=== PATIENT | female | born 1955 | race Caucasian/White ===

== ENCOUNTER 2017-07-05 10:32 | Inpatient (IN) ==
[2017-07-05] MEDS ORDERED: ACETAMINOPHEN 325 MG TABLET PO PRN (10:54)
[2017-07-05] MEDS ORDERED: EPOETIN ALFA 2,000 UNIT/1 ML VIAL IV PRN (11:02)
[2017-07-05 12:40] LABS: Basophils # 0.1 10*3/uL (0.0-0.2); Eosinophils # 0.2 10*3/uL (0.0-0.87); Eosinophils % 3.8 % (0.00-10.9); Hematocrit 23.7 VOL% (35.7-47.0); Immature Granulocytes % 0.2 %; Immature Granulocytes Absolute 0.01 #; Lymphocytes # 1.4 10*3/uL (1.4-4.0); Lymphocytes % 24.5 % (21.3-54.2); Mean Corpuscular HGB Conc 33.8 GM/DL (32-36); Mean Corpuscular Hemoglobin 33 PG (27-34); Mean Corpuscular Volume 98.3 FL (87-102); Mean Platelet Volume 11.2 FL (9.6-12.0); Monocytes # 0.5 10*3/uL (0.11-0.8); Monocytes % 8.4 % (1.7-12.7); Neutrophils # 3.6 10*3/uL (1.4-7.4); Neutrophils % 62.1 % (38.7-73.9); Platelet Count 213 T/CUMM (130-400); Red Blood Count 2.41 MC/CUMM (3.8-5.5); Red Cell Distribution Width 11.6 % (9.3-17.3); White Blood Count 5.7 T/CUMM (4-12)
[2017-07-05 16:11] LABS: Hepatitis A Ab IgM Result Negative (Negative); Hepatitis B Core IgM Quant 0.16 Index; Hepatitis B Core IgM Result Negative (Negative); Hepatitis B Surface Ag Quant < 0.10 Index; Hepatitis B Surface Ag Result Negative (Negative); Hepatitis C Virus Ab Quant 0.05 Index; Hepatitis C Virus Ab Result Negative (Negative)
[2017-07-05] MEDS: DOCUSATE SODIUM 100 MG CAPSULE PO SCH (21:36)
[2017-07-05] MEDS: ATORVASTATIN 10 MG TABLET PO SCH (21:36)
[2017-07-06] MEDS: ONDANSETRON 4 MG/2 ML VIAL IV PRN ×2 (06:11→20:41)
[2017-07-06 06:38] LABS: Basophils # 0.1 10*3/uL (0.0-0.2); Basophils % 1.2 % (0.0-0.8); Eosinophils # 0.2 10*3/uL (0.0-0.87); Eosinophils % 3.3 % (0.00-10.9); Hematocrit 24.5 VOL% (35.7-47.0); Hemoglobin 8.2 GM/DL (12.0-16.0); Immature Granulocytes % 0.1 %; Immature Granulocytes Absolute 0.01 #; Lymphocytes # 2.3 10*3/uL (1.4-4.0); Lymphocytes % 33.3 % (21.3-54.2); Mean Corpuscular HGB Conc 33.5 GM/DL (32-36); Mean Corpuscular Hemoglobin 33 PG (27-34); Mean Corpuscular Volume 97.6 FL (87-102); Mean Platelet Volume 11.3 FL (9.6-12.0); Monocytes # 0.6 10*3/uL (0.11-0.8); Monocytes % 8.7 % (1.7-12.7); Neutrophils # 3.7 10*3/uL (1.4-7.4); Neutrophils % 53.4 % (38.7-73.9); Platelet Count 244 T/CUMM (130-400); Red Blood Count 2.51 MC/CUMM (3.8-5.5); Red Cell Distribution Width 11.7 % (9.3-17.3); White Blood Count 6.9 T/CUMM (4-12)
[2017-07-06 07:07] LABS: Albumin 4.1 G/DL (3.4-5.0); Calcium 8.5 MG/DL (8.5-10.1); Osmolality,Calculated 299.4 MOS/KG (273-304); Potassium 4.9 MMOL/L (3.5-5.1)
[2017-07-06] MEDS ORDERED: ceFAZolin 1,000 MG in SYRINGE 1 EACH IV ONE (08:53)
[2017-07-06] MEDS: PANTOPRAZOLE 40 MG TABLET PO SCH (09:00)
[2017-07-06] MEDS: DOCUSATE SODIUM 100 MG CAPSULE PO SCH ×2 (09:00→20:41)
[2017-07-06] MEDS: ESCITALOPRAM 10 MG TABLET PO SCH (09:00)
[2017-07-06] MEDS: LOSARTAN 25 MG TABLET PO SCH (09:00)
[2017-07-06] MEDS ORDERED: LIDOCAINE 1%/EPI INJ 20 ML VIAL ONE (09:27)
[2017-07-06] MEDS ORDERED: BUPIVACAINE 0.25% 50 ML VIAL ONE (09:27)
[2017-07-06] MEDS ORDERED: HEPARIN 5,000 UNIT/1 ML VIAL ONE (09:27)
[2017-07-06] MEDS: SODIUM CHLORIDE 0.9% 250 ML IV SCH (09:55)
[2017-07-06] MEDS ORDERED: PROPOFOL 200 MG/20 ML VIAL IV ONE (10:47)
[2017-07-06] MEDS ORDERED: fentaNYL 100 MCG/2 ML VIAL ONE (10:48)
[2017-07-06] MEDS ORDERED: ONDANSETRON 4 MG/2 ML VIAL ONE ×2 (10:48→11:02)
[2017-07-06] MEDS ORDERED: MIDAZOLAM 2 MG/2 ML VIAL ONE (10:48)
[2017-07-06] MEDS ORDERED: ONDANSETRON 4 MG/2 ML VIAL IM ONE (11:06)
[2017-07-06] MEDS ORDERED: HEPARIN 10,000 UNIT/10 ML VIAL IV PRN (14:24)
[2017-07-06] MEDS: ATORVASTATIN 10 MG TABLET PO SCH (20:41)
[2017-07-07] MEDS: SODIUM CHLORIDE 0.9% 250 ML IV SCH (03:21)
[2017-07-07 06:41] LABS: Basophils % 0.6 % (0.0-0.8); Eosinophils # 0.1 10*3/uL (0.0-0.87); Eosinophils % 1.1 % (0.00-10.9); Hematocrit 21.2 VOL% (35.7-47.0); Hemoglobin 7.3 GM/DL (12.0-16.0); Immature Granulocytes % 0.6 %; Immature Granulocytes Absolute 0.04 #; Lymphocytes # 1.6 10*3/uL (1.4-4.0); Lymphocytes % 21.4 % (21.3-54.2); Mean Corpuscular HGB Conc 34.4 GM/DL (32-36); Mean Corpuscular Hemoglobin 33 PG (27-34); Mean Corpuscular Volume 96.4 FL (87-102); Mean Platelet Volume 10.7 FL (9.6-12.0); Monocytes # 0.7 10*3/uL (0.11-0.8); Monocytes % 9.8 % (1.7-12.7); Neutrophils # 4.8 10*3/uL (1.4-7.4); Neutrophils % 66.5 % (38.7-73.9); Platelet Count 192 T/CUMM (130-400); Red Cell Distribution Width 11.7 % (9.3-17.3); White Blood Count 7.2 T/CUMM (4-12)
[2017-07-07 07:08] LABS: Albumin 3.6 G/DL (3.4-5.0); Potassium 4.5 MMOL/L (3.5-5.1)
[2017-07-07 07:43] VITALS: BP 103/55
[2017-07-07] MEDS ORDERED: SODIUM CHLORIDE 0.9% 1,000 ML IV PRN (07:48)
[2017-07-07] MEDS: LOSARTAN 25 MG TABLET PO SCH (08:17)
[2017-07-07] MEDS: DOCUSATE SODIUM 100 MG CAPSULE PO SCH (08:17)
[2017-07-07] MEDS: PANTOPRAZOLE 40 MG TABLET PO SCH (08:17)
[2017-07-07] MEDS: ESCITALOPRAM 10 MG TABLET PO SCH (08:17)
== END 2017-07-07 13:59 | disposition home or self-care (01) | DRG 673 ==
LOC: N.5E 11:08
PROVIDERS: ADMIT Internal Medicine Nephrology; ATTEND Internal Medicine Nephrology

== ENCOUNTER 2018-08-20 21:34 | Inpatient (IN) ==
[2018-08-20] MEDS ORDERED: CEFEPIME 1,000 MG in SODIUM CHLORIDE 0.9% 100 ML IV STA (22:35)
[2018-08-20] MEDS ORDERED: VANCOMYCIN INJ 750 MG in SODIUM CHLORIDE 0.9% 250 ML IV STA (22:35)
[2018-08-20 22:41] LABS: Basophils % 0.7 % (0.0-0.8); Hematocrit 35.9 VOL% (35.7-47.0); Hemoglobin 11.3 GM/DL (12.0-16.0); Immature Granulocytes % 0.5 %; Immature Granulocytes Absolute 0.03 #; Lymphocytes # 0.4 10*3/uL (1.4-4.0); Lymphocytes % 7.6 % (21.3-54.2); Mean Corpuscular HGB Conc 31.5 GM/DL (32-36); Mean Corpuscular Hemoglobin 33 PG (27-34); Mean Corpuscular Volume 105.6 FL (87-102); Mean Platelet Volume 10.5 FL (9.6-12.0); Monocytes # 0.2 10*3/uL (0.11-0.8); Monocytes % 4.1 % (1.7-12.7); Neutrophils # 4.9 10*3/uL (1.4-7.4); Neutrophils % 87.1 % (38.7-73.9); Platelet Count 140 T/CUMM (130-400); Red Cell Distribution Width 15.1 % (9.3-17.3); White Blood Count 5.7 T/CUMM (4-12)
[2018-08-20 22:54] LABS: Bilirubin,Total 0.4 MG/DL (0.2-1.0); Calcium 7.5 MG/DL (8.5-10.1); Osmolality,Calculated 283.1 MOS/KG (273-304); Potassium 5.4 MMOL/L (3.5-5.1); Total Protein 7.4 G/DL (6.4-8.3)
[2018-08-21] MEDS ORDERED: guaiFENesin/DM ER 600-30 MG TABLET PO PRN (01:05)
[2018-08-21] MEDS ORDERED: ACETAMINOPHEN 325 MG TABLET PO PRN ×2 (01:05→10:42)
[2018-08-21] MEDS ORDERED: ALBUTEROL 2.5 MG/3 ML NEB RESP TX PRN (01:12)
[2018-08-21] MEDS ORDERED: cefTRIAXone 1,000 MG in SYRINGE 1 EACH IV SCH (02:30)
[2018-08-21] MEDS ORDERED: AZITHROMYCIN INJ 500 MG in SODIUM CHLORIDE 0.9% 250 ML IV SCH (03:00)
[2018-08-21 05:09] LABS: Basophils % 0.8 % (0.0-0.8); Hematocrit 35.2 VOL% (35.7-47.0); Hemoglobin 11.3 GM/DL (12.0-16.0); Immature Granulocytes % 0.8 %; Immature Granulocytes Absolute 0.04 #; Lymphocytes # 0.6 10*3/uL (1.4-4.0); Lymphocytes % 11.5 % (21.3-54.2); Mean Corpuscular HGB Conc 32.1 GM/DL (32-36); Mean Corpuscular Hemoglobin 33 PG (27-34); Mean Corpuscular Volume 104.1 FL (87-102); Mean Platelet Volume 10.4 FL (9.6-12.0); Monocytes # 0.1 10*3/uL (0.11-0.8); Monocytes % 2.1 % (1.7-12.7); Neutrophils # 4.5 10*3/uL (1.4-7.4); Neutrophils % 84.8 % (38.7-73.9); Platelet Count 132 T/CUMM (130-400); Red Blood Count 3.38 MC/CUMM (3.8-5.5); Red Cell Distribution Width 15.1 % (9.3-17.3); White Blood Count 5.3 T/CUMM (4-12)
[2018-08-21 05:38] LABS: Calcium 7.3 MG/DL (8.5-10.1); Osmolality,Calculated 285.1 MOS/KG (273-304); Potassium 5.1 MMOL/L (3.5-5.1)
[2018-08-21 06:13] LABS: Band Neutrophils 23 % (0-10); Lymphocytes 4 % (20-55); Platelet Estimate Adequate; Segmented Neutrophils 67 % (50-85); Total Cells Counted 100
[2018-08-21 06:14] LABS: Anisocytosis 1+; Poikilocytosis 1+
[2018-08-21] MEDS: ALBUTEROL/IPRATROPIUM 3 ML NEB RESP TX SCH ×3 (07:01→19:16)
[2018-08-21] MEDS ORDERED: LOSARTAN 50 MG TABLET PO SCH (09:00)
[2018-08-21] MEDS: BENZONATATE 100 MG CAPSULE PO SCH ×3 (09:31→21:55)
[2018-08-21] MEDS: PANTOPRAZOLE 40 MG TABLET PO SCH (09:31)
[2018-08-21] MEDS: CEFEPIME 2,000 MG in SYRINGE 1 EACH IV SCH ×2 (09:32→17:45)
[2018-08-21] MEDS ORDERED: LEVOFLOXACIN INJ 500 MG in PREMIX 1 EACH IV ONE (10:26)
[2018-08-21] MEDS ORDERED: VANCOMYCIN INJ 750 MG in SODIUM CHLORIDE 0.9% 250 ML IV ONE (10:30)
[2018-08-21] MEDS ORDERED: PIPERACILLIN/TAZOBACTAM 2,250 MG in SODIUM CHLORIDE 0.9% 100 ML IV SCH (11:00)
[2018-08-21] MEDS ORDERED: METOPROLOL TARTRATE 5 MG/5 ML VIAL IV ONE (15:15)
[2018-08-21] MEDS ORDERED: DILTIAZEM 30 MG TABLET PO SCH (15:30)
[2018-08-21] MEDS ORDERED: HEPARIN 5,000 UNIT/1 ML VIAL SUBCUT SCH (15:30)
[2018-08-21] MEDS ORDERED: METOPROLOL TARTRATE 25 MG TABLET PO ONE (15:37)
[2018-08-21] MEDS ORDERED: FUROSEMIDE 40 MG/4 ML VIAL IV ONE (16:24)
[2018-08-21 17:05] LABS: ABG Base Excess -8.7 MMOL/L (-2.5-2.5); ABG HCO3 17.3 MMOL/L (20-26); ABG Oxygen Saturation 88.2 % (95-100); ABG PCO2 32.8 MM HG (35-48); ABG PH 7.313 (7.35-7.45); ABG PO2 57.4 MM HG (80-95); ABG TCO2 14.9 MMOL/L (23-27)
[2018-08-21] MEDS: APIXABAN 2.5 MG TABLET PO SCH (17:45)
[2018-08-21] MEDS: ONDANSETRON 4 MG/2 ML VIAL IV PRN (18:00)
[2018-08-21 18:50] LABS: ABG Base Excess -9.3 MMOL/L (-2.5-2.5); ABG PCO2 31.6 MM HG (35-48); ABG PH 7.313 (7.35-7.45); ABG PO2 77.3 MM HG (80-95); ABG TCO2 14.4 MMOL/L (23-27)
[2018-08-21] MEDS: DORNASE ALFA 2.5 MG/2.5 ML VIAL RESP TX SCH (19:17)
[2018-08-21] MEDS ORDERED: MAGNESIUM SULF RIDER 2 GM in PREMIX 1 EACH IV ONE (21:47)
[2018-08-21] MEDS: CARVEDILOL 3.125 MG TABLET PO SCH (21:55)
[2018-08-21] MEDS: ESCITALOPRAM 10 MG TABLET PO SCH (21:55)
[2018-08-21] MEDS: hydroCHLOROthiazide 25 MG TABLET PO SCH (21:55)
[2018-08-21] MEDS: MONTELUKAST 10 MG TABLET PO SCH (21:55)
[2018-08-21] MEDS: FLUTICASONE 50 MCG NASAL SPRAY 16 GM BOTTLE BOTH NARES SCH (21:57)
[2018-08-21] MEDS: DILTIAZEM 30 MG TABLET PO SCH (23:40)
[2018-08-22] MEDS: ALBUTEROL/IPRATROPIUM 3 ML NEB RESP TX SCH ×4 (00:24→20:39)
[2018-08-22] MEDS: CEFEPIME 2,000 MG in SYRINGE 1 EACH IV SCH (00:50)
[2018-08-22] MEDS: DORNASE ALFA 2.5 MG/2.5 ML VIAL RESP TX SCH ×2 (07:05→20:39)
[2018-08-22 07:16] LABS: Folate 12.7 NG/ML (5.4-24.0)
[2018-08-22] MEDS: APIXABAN 2.5 MG TABLET PO SCH ×2 (08:19→20:32)
[2018-08-22] MEDS: BENZONATATE 100 MG CAPSULE PO SCH ×3 (08:19→20:32)
[2018-08-22] MEDS: CARVEDILOL 3.125 MG TABLET PO SCH ×2 (08:19→17:17)
[2018-08-22] MEDS: DILTIAZEM 30 MG TABLET PO SCH ×2 (08:19→17:17)
[2018-08-22] MEDS: PANTOPRAZOLE 40 MG TABLET PO SCH (08:20)
[2018-08-22] MEDS: CYANOCOBALAMIN 1000 MCG/1 ML VIAL IM SCH (08:22)
[2018-08-22] MEDS: MAGNESIUM CHLORIDE 64 MG TABLET PO SCH (12:12)
[2018-08-22] MEDS: CEFEPIME 1,000 MG in SYRINGE 1 EACH IV SCH (17:19)
[2018-08-22] MEDS ORDERED: METOPROLOL TARTRATE 5 MG/5 ML VIAL IV ONE ×2 (18:44→18:48)
[2018-08-22] MEDS: FLUTICASONE 50 MCG NASAL SPRAY 16 GM BOTTLE BOTH NARES SCH (20:32)
[2018-08-22] MEDS: MONTELUKAST 10 MG TABLET PO SCH (20:32)
[2018-08-22] MEDS: hydroCHLOROthiazide 25 MG TABLET PO SCH (20:32)
[2018-08-22] MEDS: ESCITALOPRAM 10 MG TABLET PO SCH (20:32)
[2018-08-23] MEDS: DILTIAZEM 30 MG TABLET PO SCH ×3 (01:00→16:51)
[2018-08-23] MEDS: ALBUTEROL/IPRATROPIUM 3 ML NEB RESP TX SCH ×4 (01:14→19:00)
[2018-08-23 06:09] LABS: Basophils % 0.4 % (0.0-0.8); Eosinophils # 0.1 10*3/uL (0.0-0.87); Eosinophils % 0.7 % (0.00-10.9); Hematocrit 35.7 VOL% (35.7-47.0); Hemoglobin 11.4 GM/DL (12.0-16.0); Immature Granulocytes % 0.6 %; Immature Granulocytes Absolute 0.04 #; Lymphocytes # 0.6 10*3/uL (1.4-4.0); Lymphocytes % 8.3 % (21.3-54.2); Mean Corpuscular HGB Conc 31.9 GM/DL (32-36); Mean Corpuscular Hemoglobin 33 PG (27-34); Mean Corpuscular Volume 102.3 FL (87-102); Mean Platelet Volume 10.7 FL (9.6-12.0); Monocytes # 0.1 10*3/uL (0.11-0.8); Monocytes % 1.3 % (1.7-12.7); Neutrophils # 6.2 10*3/uL (1.4-7.4); Neutrophils % 88.7 % (38.7-73.9); Platelet Count 140 T/CUMM (130-400); Red Blood Count 3.49 MC/CUMM (3.8-5.5); Red Cell Distribution Width 15.7 % (9.3-17.3)
[2018-08-23 06:31] LABS: Bilirubin,Direct 0.12 MG/DL (0.0-0.20); Bilirubin,Indirect 0.4 MG/DL (0.0-1.0); Bilirubin,Total 0.5 MG/DL (0.2-1.0); Calcium 7.5 MG/DL (8.5-10.1); Osmolality,Calculated 277.4 MOS/KG (273-304); Potassium 4.5 MMOL/L (3.5-5.1); Risk Ratio 8.54; Total Protein 6.3 G/DL (6.4-8.3); VLDL CHOLESTEROL 45.2 MG/DL
[2018-08-23] MEDS: DORNASE ALFA 2.5 MG/2.5 ML VIAL RESP TX SCH ×2 (07:25→19:07)
[2018-08-23 08:00] LABS: Band Neutrophils 1 % (0-10); Lymphocytes 6 % (20-55); Platelet Estimate Adequate; Segmented Neutrophils 91 % (50-85); Total Cells Counted 100
[2018-08-23 08:01] LABS: Hypochromasia Slight
[2018-08-23] MEDS ORDERED: AZITHROMYCIN 250 MG TABLET PO SCH (09:00)
[2018-08-23] MEDS: PANTOPRAZOLE 40 MG TABLET PO SCH (12:49)
[2018-08-23] MEDS: MAGNESIUM CHLORIDE 64 MG TABLET PO SCH (12:49)
[2018-08-23] MEDS: BENZONATATE 100 MG CAPSULE PO SCH ×3 (12:49→21:14)
[2018-08-23] MEDS: CARVEDILOL 3.125 MG TABLET PO SCH ×2 (12:49→16:52)
[2018-08-23] MEDS: APIXABAN 2.5 MG TABLET PO SCH ×2 (12:50→21:14)
[2018-08-23] MEDS: CYANOCOBALAMIN 1000 MCG/1 ML VIAL IM SCH (12:50)
[2018-08-23 14:08] LABS: Basophils % 0.5 % (0.0-0.8); Eosinophils # 0.1 10*3/uL (0.0-0.87); Eosinophils % 1.7 % (0.00-10.9); Hematocrit 35.9 VOL% (35.7-47.0); Hemoglobin 11.7 GM/DL (12.0-16.0); Immature Granulocytes % 0.3 %; Immature Granulocytes Absolute 0.02 #; Lymphocytes # 0.4 10*3/uL (1.4-4.0); Lymphocytes % 6.9 % (21.3-54.2); Mean Corpuscular HGB Conc 32.6 GM/DL (32-36); Mean Corpuscular Hemoglobin 33 PG (27-34); Mean Corpuscular Volume 101.1 FL (87-102); Mean Platelet Volume 10.4 FL (9.6-12.0); Monocytes # 0.1 10*3/uL (0.11-0.8); Monocytes % 1.7 % (1.7-12.7); Neutrophils # 5.1 10*3/uL (1.4-7.4); Neutrophils % 88.9 % (38.7-73.9); Platelet Count 143 T/CUMM (130-400); Red Blood Count 3.55 MC/CUMM (3.8-5.5); Red Cell Distribution Width 15.6 % (9.3-17.3); White Blood Count 5.8 T/CUMM (4-12)
[2018-08-23 14:15] LABS: PT Patient Result 11.3 SECS; Partial Thromboplastin Time 39.3 SECS (0-40)
[2018-08-23 14:18] LABS: Alanine Aminotransferase 21 U/L (13-56); Albumin 2.1 G/DL (3.4-5.0); Alkaline Phosphatase 101 U/L (45-117); Aspartate Amino Transferase 55 U/L (0-37); Blood Urea Nitrogen 17 MG/DL (7-18); Glucose 80 MG/DL (74-106); Osmolality,Calculated 273.8 MOS/KG (273-304); Potassium 4.1 MMOL/L (3.5-5.1); Sodium 137 MMOL/L (136-145); Total Protein 6.6 G/DL (6.4-8.3)
[2018-08-23] MEDS: LEVOFLOXACIN INJ 250 MG in PREMIX 1 EACH IV SCH (14:27)
[2018-08-23 14:42] LABS: ABG Base Excess -0.9 MMOL/L (-2.5-2.5); ABG HCO3 23.6 MMOL/L (20-26); ABG Oxygen Saturation 95.8 % (95-100); ABG PCO2 41.3 MM HG (35-48); ABG PH 7.377 (7.35-7.45); ABG TCO2 21.7 MMOL/L (23-27); Pt O2 Delivery Device Other
[2018-08-23 15:02] LABS: Band Neutrophils 1 % (0-10); Lymphocytes 8 % (20-55); Segmented Neutrophils 90 % (50-85); Total Cells Counted 100
[2018-08-23 15:03] LABS: Hypochromasia Slight; Macrocytosis 1+; Platelet Estimate Adequate
[2018-08-23] MEDS ORDERED: VANCOMYCIN INJ 1,000 MG in SODIUM CHLORIDE 0.9% 250 ML IV ONE (17:00)
[2018-08-23] MEDS: CEFEPIME 1,000 MG in SYRINGE 1 EACH IV SCH (17:36)
[2018-08-23] MEDS: FLUTICASONE 50 MCG NASAL SPRAY 16 GM BOTTLE BOTH NARES SCH (21:14)
[2018-08-23] MEDS: MONTELUKAST 10 MG TABLET PO SCH (21:14)
[2018-08-23] MEDS: hydroCHLOROthiazide 25 MG TABLET PO SCH (21:14)
[2018-08-23] MEDS: ESCITALOPRAM 10 MG TABLET PO SCH (21:14)
[2018-08-24] MEDS: DILTIAZEM 30 MG TABLET PO SCH ×3 (00:32→16:42)
[2018-08-24] MEDS: ALBUTEROL/IPRATROPIUM 3 ML NEB RESP TX SCH ×4 (00:42→19:24)
[2018-08-24 06:19] LABS: Basophils % 0.7 % (0.0-0.8); Eosinophils # 0.2 10*3/uL (0.0-0.87); Eosinophils % 3.3 % (0.00-10.9); Hematocrit 31.6 VOL% (35.7-47.0); Hemoglobin 10.2 GM/DL (12.0-16.0); Immature Granulocytes % 0.2 %; Immature Granulocytes Absolute 0.01 #; Lymphocytes # 0.4 10*3/uL (1.4-4.0); Lymphocytes % 9.5 % (21.3-54.2); Mean Corpuscular HGB Conc 32.3 GM/DL (32-36); Mean Corpuscular Hemoglobin 33 PG (27-34); Mean Corpuscular Volume 101.3 FL (87-102); Mean Platelet Volume 10.3 FL (9.6-12.0); Monocytes # 0.1 10*3/uL (0.11-0.8); Monocytes % 2.4 % (1.7-12.7); Neutrophils # 3.8 10*3/uL (1.4-7.4); Neutrophils % 83.9 % (38.7-73.9); Platelet Count 151 T/CUMM (130-400); Red Blood Count 3.12 MC/CUMM (3.8-5.5); White Blood Count 4.6 T/CUMM (4-12)
[2018-08-24 06:44] LABS: Calcium 7.9 MG/DL (8.5-10.1); Osmolality,Calculated 284.4 MOS/KG (273-304); Potassium 4.3 MMOL/L (3.5-5.1)
[2018-08-24] MEDS: DORNASE ALFA 2.5 MG/2.5 ML VIAL RESP TX SCH ×2 (07:16→19:24)
[2018-08-24 07:33] LABS: Anisocytosis 1+; Band Neutrophils 7 % (0-10); Eosinophils 5 % (0-10); Lymphocytes 15 % (20-55); Platelet Estimate Adequate; Poikilocytosis 1+; Segmented Neutrophils 71 % (50-85); Total Cells Counted 100
[2018-08-24 07:34] LABS: Burr Cells Few
[2018-08-24] MEDS: APIXABAN 2.5 MG TABLET PO SCH ×2 (08:15→20:45)
[2018-08-24] MEDS: CARVEDILOL 3.125 MG TABLET PO SCH ×2 (08:15→16:30)
[2018-08-24] MEDS: BENZONATATE 100 MG CAPSULE PO SCH ×3 (08:16→20:45)
[2018-08-24] MEDS: MAGNESIUM CHLORIDE 64 MG TABLET PO SCH (08:16)
[2018-08-24] MEDS: PANTOPRAZOLE 40 MG TABLET PO SCH (08:16)
[2018-08-24] MEDS ORDERED: VANCOMYCIN INJ 500 MG in SODIUM CHLORIDE 0.9% 100 ML IV PRN (09:21)
[2018-08-24] MEDS: CYANOCOBALAMIN 1000 MCG/1 ML VIAL IM SCH (09:44)
[2018-08-24] MEDS: methylPREDNISolone SOD SUC 40 MG/1 ML VIAL IV SCH ×2 (14:46→21:45)
[2018-08-24] MEDS: CEFEPIME 1,000 MG in SYRINGE 1 EACH IV SCH (16:40)
[2018-08-24] MEDS ORDERED: VANCOMYCIN INJ 500 MG in SODIUM CHLORIDE 0.9% 100 ML IV ONE (17:00)
[2018-08-24] MEDS: ESCITALOPRAM 10 MG TABLET PO SCH (20:45)
[2018-08-24] MEDS: hydroCHLOROthiazide 25 MG TABLET PO SCH (20:45)
[2018-08-24] MEDS: MONTELUKAST 10 MG TABLET PO SCH (20:45)
[2018-08-24] MEDS: NYSTATIN CREAM 15 GM TUBE TOP SCH (21:45)
[2018-08-24] MEDS: FLUTICASONE 50 MCG NASAL SPRAY 16 GM BOTTLE BOTH NARES SCH (21:45)
[2018-08-25] MEDS: DILTIAZEM 30 MG TABLET PO SCH ×4 (00:10→17:03)
[2018-08-25] MEDS: ALBUTEROL/IPRATROPIUM 3 ML NEB RESP TX SCH ×4 (00:26→19:34)
[2018-08-25 05:55] LABS: Basophils % 0.2 % (0.0-0.8); Hematocrit 31.5 VOL% (35.7-47.0); Hemoglobin 10.2 GM/DL (12.0-16.0); Immature Granulocytes % 0.7 %; Immature Granulocytes Absolute 0.03 #; Lymphocytes # 0.3 10*3/uL (1.4-4.0); Lymphocytes % 6.7 % (21.3-54.2); Mean Corpuscular HGB Conc 32.4 GM/DL (32-36); Mean Corpuscular Hemoglobin 33 PG (27-34); Mean Corpuscular Volume 102.6 FL (87-102); Mean Platelet Volume 10.1 FL (9.6-12.0); Monocytes # 0.1 10*3/uL (0.11-0.8); Monocytes % 2.5 % (1.7-12.7); Neutrophils # 3.9 10*3/uL (1.4-7.4); Neutrophils % 89.9 % (38.7-73.9); Platelet Count 182 T/CUMM (130-400); Red Blood Count 3.07 MC/CUMM (3.8-5.5); Red Cell Distribution Width 16.4 % (9.3-17.3); White Blood Count 4.4 T/CUMM (4-12)
[2018-08-25 06:14] LABS: Albumin 1.9 G/DL (3.4-5.0); Bilirubin,Total 0.7 MG/DL (0.2-1.0); Calcium 8.3 MG/DL (8.5-10.1); Osmolality,Calculated 292.5 MOS/KG (273-304); Potassium 4.7 MMOL/L (3.5-5.1); Total Protein 6.8 G/DL (6.4-8.3)
[2018-08-25 06:39] LABS: Eosinophils 1 % (0-10); Lymphocytes 3 % (20-55); Platelet Estimate Adequate; Segmented Neutrophils 95 % (50-85); Total Cells Counted 100
[2018-08-25 06:40] LABS: Hypochromasia 1+; Ovalocytes Slight
[2018-08-25] MEDS: methylPREDNISolone SOD SUC 40 MG/1 ML VIAL IV SCH ×3 (06:41→22:30)
[2018-08-25] MEDS: DORNASE ALFA 2.5 MG/2.5 ML VIAL RESP TX SCH ×2 (06:58→19:35)
[2018-08-25] MEDS: PANTOPRAZOLE 40 MG TABLET PO SCH (08:05)
[2018-08-25 08:54] LABS: Amorphous Crystals,Urine Occasional /HPF (Few); Apearance,Urine CLEAR (Clear); Bilirubin,Urine Negative (Negative); Blood, Urine Small mg/dL (Negative); Glucose,Urine (UA) Negative (Negative); Ketones,Urine 20 mg/dL (Negative); Nitrite,Urine Negative (Negative); Protein,Urine 100 MG/DL; RBC,Urine 1 /HPF (0-4); Urine Color Yellow (Yellow); Urine Specific Gravity 1.009 (1.001-1.035); Urine Urobilinogen < 2.0 EU/DL (0.2-1.0); WBC,Urine <1 /HPF (0-6)
[2018-08-25 09:21] LABS: Prealbumin 10.5 MG/DL (20-40)
[2018-08-25] MEDS: MAGNESIUM CHLORIDE 64 MG TABLET PO SCH (12:09)
[2018-08-25] MEDS: BENZONATATE 100 MG CAPSULE PO SCH ×4 (12:10→22:49)
[2018-08-25] MEDS: LEVOFLOXACIN INJ 250 MG in PREMIX 1 EACH IV SCH (12:34)
[2018-08-25] MEDS: CARVEDILOL 3.125 MG TABLET PO SCH ×3 (12:46→17:03)
[2018-08-25] MEDS ORDERED: LIDOCAINE 2% VISCOUS 100 ML BOTTLE ONE (13:44)
[2018-08-25] MEDS: APIXABAN 2.5 MG TABLET PO SCH (14:15)
[2018-08-25] MEDS: NYSTATIN CREAM 15 GM TUBE TOP SCH ×2 (15:59→22:48)
[2018-08-25] MEDS: CEFEPIME 1,000 MG in SYRINGE 1 EACH IV SCH (16:00)
[2018-08-25] MEDS ORDERED: VANCOMYCIN INJ 500 MG in SODIUM CHLORIDE 0.9% 100 ML IV ONE (17:00)
[2018-08-25] MEDS: hydroCHLOROthiazide 25 MG TABLET PO SCH (22:47)
[2018-08-25] MEDS: ESCITALOPRAM 10 MG TABLET PO SCH (22:47)
[2018-08-25] MEDS: FLUTICASONE 50 MCG NASAL SPRAY 16 GM BOTTLE BOTH NARES SCH (22:47)
[2018-08-25] MEDS: MONTELUKAST 10 MG TABLET PO SCH (22:48)
[2018-08-26] MEDS: ALBUTEROL/IPRATROPIUM 3 ML NEB RESP TX SCH ×4 (00:13→19:15)
[2018-08-26] MEDS: DILTIAZEM 30 MG TABLET PO SCH ×3 (02:58→17:47)
[2018-08-26 05:45] LABS: Basophils % 0.2 % (0.0-0.8); Hematocrit 34.2 VOL% (35.7-47.0); Hemoglobin 11.2 GM/DL (12.0-16.0); Immature Granulocytes % 1.4 %; Immature Granulocytes Absolute 0.09 #; Lymphocytes # 0.2 10*3/uL (1.4-4.0); Lymphocytes % 3.6 % (21.3-54.2); Mean Corpuscular HGB Conc 32.7 GM/DL (32-36); Mean Corpuscular Hemoglobin 33 PG (27-34); Mean Corpuscular Volume 100.6 FL (87-102); Mean Platelet Volume 10.3 FL (9.6-12.0); Monocytes # 0.5 10*3/uL (0.11-0.8); Monocytes % 7.4 % (1.7-12.7); Neutrophils # 5.6 10*3/uL (1.4-7.4); Neutrophils % 87.4 % (38.7-73.9); Platelet Count 238 T/CUMM (130-400); Red Cell Distribution Width 16.5 % (9.3-17.3); White Blood Count 6.4 T/CUMM (4-12)
[2018-08-26 05:58] LABS: Calcium 8.9 MG/DL (8.5-10.1); Osmolality,Calculated 295.5 MOS/KG (273-304); Potassium 4.6 MMOL/L (3.5-5.1)
[2018-08-26 06:21] LABS: Band Neutrophils 3 % (0-10); Hypochromasia 2+; Lymphocytes 5 % (20-55); Platelet Estimate Normal; Segmented Neutrophils 84 % (50-85); Total Cells Counted 100
[2018-08-26] MEDS: methylPREDNISolone SOD SUC 40 MG/1 ML VIAL IV SCH ×3 (07:01→21:58)
[2018-08-26] MEDS: DORNASE ALFA 2.5 MG/2.5 ML VIAL RESP TX SCH ×2 (07:10→19:23)
[2018-08-26 09:40] LABS: Glucose,CSF 106 MG/DL (40-70)
[2018-08-26 09:48] LABS: Lymphocytes,CSF 54 %; Monocytes,CSF 46 %
[2018-08-26 09:50] LABS: Appearance,CSF Clear; Red Blood Cell,CSF < 1 C/CUMM; White Blood Cell,CSF 12 C/CUMM
[2018-08-26] MEDS: ONDANSETRON 4 MG/2 ML VIAL IV PRN (11:57)
[2018-08-26] MEDS: MAGNESIUM CHLORIDE 64 MG TABLET PO SCH (13:41)
[2018-08-26] MEDS: BENZONATATE 100 MG CAPSULE PO SCH ×3 (13:41→21:07)
[2018-08-26] MEDS: CARVEDILOL 3.125 MG TABLET PO SCH ×2 (13:41→17:48)
[2018-08-26] MEDS: NYSTATIN CREAM 15 GM TUBE TOP SCH ×2 (13:41→21:07)
[2018-08-26] MEDS: PANTOPRAZOLE 40 MG TABLET PO SCH (13:41)
[2018-08-26] MEDS: CEFEPIME 1,000 MG in SYRINGE 1 EACH IV SCH (17:47)
[2018-08-26] MEDS: ESCITALOPRAM 10 MG TABLET PO SCH (21:06)
[2018-08-26] MEDS: DONEPEZIL 5 MG TABLET PO SCH (21:06)
[2018-08-26] MEDS: MONTELUKAST 10 MG TABLET PO SCH (21:06)
[2018-08-26] MEDS: hydroCHLOROthiazide 25 MG TABLET PO SCH (21:06)
[2018-08-26] MEDS: FLUTICASONE 50 MCG NASAL SPRAY 16 GM BOTTLE BOTH NARES SCH (21:06)
[2018-08-27] MEDS: DILTIAZEM 30 MG TABLET PO SCH ×3 (01:08→16:29)
[2018-08-27] MEDS: ALBUTEROL/IPRATROPIUM 3 ML NEB RESP TX SCH ×4 (01:58→19:32)
[2018-08-27] MEDS: methylPREDNISolone SOD SUC 40 MG/1 ML VIAL IV SCH ×3 (06:00→22:39)
[2018-08-27 06:13] LABS: Basophils % 0.1 % (0.0-0.8); Immature Granulocytes % 0.6 %; Immature Granulocytes Absolute 0.05 #; Lymphocytes # 0.2 10*3/uL (1.4-4.0); Lymphocytes % 2.5 % (21.3-54.2); Mean Corpuscular HGB Conc 31.4 GM/DL (32-36); Mean Corpuscular Hemoglobin 32 PG (27-34); Mean Corpuscular Volume 102.6 FL (87-102); Mean Platelet Volume 10.6 FL (9.6-12.0); Monocytes # 0.7 10*3/uL (0.11-0.8); Monocytes % 8.3 % (1.7-12.7); Neutrophils # 7.4 10*3/uL (1.4-7.4); Neutrophils % 88.5 % (38.7-73.9); Platelet Count 224 T/CUMM (130-400); Red Blood Count 3.41 MC/CUMM (3.8-5.5); Red Cell Distribution Width 15.9 % (9.3-17.3); White Blood Count 8.4 T/CUMM (4-12)
[2018-08-27 06:35] LABS: Calcium 8.7 MG/DL (8.5-10.1); Potassium 4.8 MMOL/L (3.5-5.1)
[2018-08-27 06:50] LABS: Hypochromasia Slight; Lymphocytes 6 % (20-55); Platelet Estimate Normal; Segmented Neutrophils 85 % (50-85); Total Cells Counted 100
[2018-08-27] MEDS: DORNASE ALFA 2.5 MG/2.5 ML VIAL RESP TX SCH ×2 (07:29→19:32)
[2018-08-27] MEDS ORDERED: METOPROLOL TARTRATE 5 MG/5 ML VIAL IV ONE ×2 (09:44→09:45)
[2018-08-27] MEDS: BENZONATATE 100 MG CAPSULE PO SCH ×3 (10:00→21:05)
[2018-08-27] MEDS: MAGNESIUM CHLORIDE 64 MG TABLET PO SCH (10:15)
[2018-08-27] MEDS: CARVEDILOL 3.125 MG TABLET PO SCH ×2 (10:15→16:29)
[2018-08-27] MEDS: PANTOPRAZOLE 40 MG TABLET PO SCH (10:15)
[2018-08-27] MEDS: NYSTATIN CREAM 15 GM TUBE TOP SCH ×2 (13:00→21:19)
[2018-08-27] MEDS: FLUCONAZOLE INJ 100 MG in IV BAG 1 EACH IV SCH (13:00)
[2018-08-27] MEDS: LEVOFLOXACIN INJ 250 MG in PREMIX 1 EACH IV SCH (13:47)
[2018-08-27] MEDS: HEPARIN 5,000 UNIT/1 ML VIAL SUBCUT SCH ×2 (13:47→21:04)
[2018-08-27] MEDS ORDERED: VANCOMYCIN INJ 500 MG in SODIUM CHLORIDE 0.9% 100 ML IV ONE (16:00)
[2018-08-27] MEDS: CEFEPIME 1,000 MG in SYRINGE 1 EACH IV SCH (16:29)
[2018-08-27] MEDS: MONTELUKAST 10 MG TABLET PO SCH (21:05)
[2018-08-27] MEDS: DONEPEZIL 5 MG TABLET PO SCH (21:05)
[2018-08-27] MEDS: hydroCHLOROthiazide 25 MG TABLET PO SCH (21:05)
[2018-08-27] MEDS: FLUTICASONE 50 MCG NASAL SPRAY 16 GM BOTTLE BOTH NARES SCH (21:13)
[2018-08-28] MEDS: ALBUTEROL/IPRATROPIUM 3 ML NEB RESP TX SCH ×4 (00:53→19:15)
[2018-08-28] MEDS: DILTIAZEM 30 MG TABLET PO SCH ×3 (01:07→16:42)
[2018-08-28] MEDS: methylPREDNISolone SOD SUC 40 MG/1 ML VIAL IV SCH ×3 (05:40→23:12)
[2018-08-28] MEDS: HEPARIN 5,000 UNIT/1 ML VIAL SUBCUT SCH ×3 (05:41→23:12)
[2018-08-28 05:56] LABS: Basophils % 0.3 % (0.0-0.8); Hematocrit 38.2 VOL% (35.7-47.0); Hemoglobin 12.3 GM/DL (12.0-16.0); Immature Granulocytes % 1.4 %; Immature Granulocytes Absolute 0.16 #; Lymphocytes # 0.5 10*3/uL (1.4-4.0); Lymphocytes % 4.1 % (21.3-54.2); Mean Corpuscular HGB Conc 32.2 GM/DL (32-36); Mean Corpuscular Hemoglobin 33 PG (27-34); Mean Corpuscular Volume 101.6 FL (87-102); Mean Platelet Volume 10.9 FL (9.6-12.0); Monocytes # 0.9 10*3/uL (0.11-0.8); Monocytes % 7.2 % (1.7-12.7); Neutrophils # 10.3 10*3/uL (1.4-7.4); Platelet Count 197 T/CUMM (130-400); Red Blood Count 3.76 MC/CUMM (3.8-5.5); Red Cell Distribution Width 15.4 % (9.3-17.3); White Blood Count 11.8 T/CUMM (4-12)
[2018-08-28 06:02] LABS: Calcium 8.6 MG/DL (8.5-10.1); Osmolality,Calculated 299.4 MOS/KG (273-304); Potassium 4.2 MMOL/L (3.5-5.1)
[2018-08-28 06:24] LABS: Lymphocytes 1 % (20-55); Segmented Neutrophils 86 % (50-85); Total Cells Counted 100
[2018-08-28 06:25] LABS: Hypochromasia 1+; Macrocytosis Slight; Target Cells Slight
[2018-08-28 06:26] LABS: Platelet Estimate Adequate
[2018-08-28] MEDS: DORNASE ALFA 2.5 MG/2.5 ML VIAL RESP TX SCH (07:40)
[2018-08-28] MEDS: MAGNESIUM CHLORIDE 64 MG TABLET PO SCH (10:38)
[2018-08-28] MEDS: NYSTATIN CREAM 15 GM TUBE TOP SCH ×2 (10:39→20:46)
[2018-08-28] MEDS: CARVEDILOL 3.125 MG TABLET PO SCH ×2 (10:39→16:42)
[2018-08-28] MEDS: LANSOPRAZOLE ODT 30 MG TABLET PO SCH (10:39)
[2018-08-28] MEDS: PANTOPRAZOLE 40 MG TABLET PO SCH (10:41)
[2018-08-28] MEDS: BENZONATATE 100 MG CAPSULE PO SCH (10:41)
[2018-08-28] MEDS: FLUCONAZOLE INJ 100 MG in IV BAG 1 EACH IV SCH (13:59)
[2018-08-28] MEDS: CEFEPIME 1,000 MG in SYRINGE 1 EACH IV SCH (16:43)
[2018-08-28] MEDS: FLUTICASONE 50 MCG NASAL SPRAY 16 GM BOTTLE BOTH NARES SCH (20:46)
[2018-08-28] MEDS: MONTELUKAST 10 MG TABLET PO SCH (20:46)
[2018-08-28] MEDS: hydroCHLOROthiazide 25 MG TABLET PO SCH (20:46)
[2018-08-28] MEDS: DONEPEZIL 5 MG TABLET PO SCH (20:46)
[2018-08-29] MEDS ORDERED: ALUMINUM/MAGNES/SIMETH MAX STR 30 ML UDCUP PO PRN (00:12)
[2018-08-29] MEDS: ALBUTEROL/IPRATROPIUM 3 ML NEB RESP TX SCH ×4 (00:48→19:10)
[2018-08-29] MEDS: DILTIAZEM 30 MG TABLET PO SCH ×4 (01:29→23:40)
[2018-08-29] MEDS: DORNASE ALFA 2.5 MG/2.5 ML VIAL RESP TX SCH ×3 (05:15→19:15)
[2018-08-29] MEDS: HEPARIN 5,000 UNIT/1 ML VIAL SUBCUT SCH ×3 (06:17→21:33)
[2018-08-29] MEDS: methylPREDNISolone SOD SUC 40 MG/1 ML VIAL IV SCH (06:17)
[2018-08-29 06:19] LABS: Basophils % 0.1 % (0.0-0.8); Hematocrit 37.4 VOL% (35.7-47.0); Immature Granulocytes % 1.9 %; Immature Granulocytes Absolute 0.23 #; Lymphocytes # 0.6 10*3/uL (1.4-4.0); Lymphocytes % 4.6 % (21.3-54.2); Mean Corpuscular HGB Conc 32.1 GM/DL (32-36); Mean Corpuscular Hemoglobin 33 PG (27-34); Mean Corpuscular Volume 101.4 FL (87-102); Mean Platelet Volume 11.4 FL (9.6-12.0); Monocytes # 0.6 10*3/uL (0.11-0.8); Monocytes % 5.3 % (1.7-12.7); Neutrophils # 10.7 10*3/uL (1.4-7.4); Neutrophils % 88.1 % (38.7-73.9); Platelet Count 197 T/CUMM (130-400); Red Blood Count 3.69 MC/CUMM (3.8-5.5); Red Cell Distribution Width 15.1 % (9.3-17.3); White Blood Count 12.1 T/CUMM (4-12)
[2018-08-29 06:37] LABS: Calcium 8.7 MG/DL (8.5-10.1); Osmolality,Calculated 315.4 MOS/KG (273-304); Potassium 4.4 MMOL/L (3.5-5.1); Prealbumin 33.9 MG/DL (20-40)
[2018-08-29 06:52] LABS: Lymphocytes 2 % (20-55); Platelet Estimate Adequate; Polychromasia Few; Segmented Neutrophils 96 % (50-85); Total Cells Counted 100
[2018-08-29] MEDS: MAGNESIUM CHLORIDE 64 MG TABLET PO SCH (09:05)
[2018-08-29] MEDS: CARVEDILOL 3.125 MG TABLET PO SCH ×2 (09:06→17:02)
[2018-08-29] MEDS: LANSOPRAZOLE ODT 30 MG TABLET PO SCH (09:07)
[2018-08-29] MEDS: NYSTATIN CREAM 15 GM TUBE TOP SCH ×2 (09:08→21:30)
[2018-08-29] MEDS: LEVOFLOXACIN INJ 250 MG in PREMIX 1 EACH IV SCH (11:48)
[2018-08-29] MEDS: FLUCONAZOLE INJ 100 MG in IV BAG 1 EACH IV SCH (14:14)
[2018-08-29] MEDS: MONTELUKAST 10 MG TABLET PO SCH (21:29)
[2018-08-29] MEDS: DONEPEZIL 5 MG TABLET PO SCH (21:29)
[2018-08-29] MEDS: APIXABAN 2.5 MG TABLET PO SCH (21:29)
[2018-08-29] MEDS: hydroCHLOROthiazide 25 MG TABLET PO SCH (21:29)
[2018-08-29] MEDS: FLUTICASONE 50 MCG NASAL SPRAY 16 GM BOTTLE BOTH NARES SCH (21:30)
[2018-08-30] MEDS ORDERED: KETOROLAC 15 MG/1 ML VIAL IV ONE (00:18)
[2018-08-30] MEDS: ALBUTEROL/IPRATROPIUM 3 ML NEB RESP TX SCH ×4 (00:30→19:34)
[2018-08-30 04:24] LABS: Basophils % 0.1 % (0.0-0.8); Hematocrit 34.6 VOL% (35.7-47.0); Hemoglobin 11.1 GM/DL (12.0-16.0); Immature Granulocytes % 2.6 %; Immature Granulocytes Absolute 0.35 #; Lymphocytes # 0.6 10*3/uL (1.4-4.0); Lymphocytes % 4.4 % (21.3-54.2); Mean Corpuscular HGB Conc 32.1 GM/DL (32-36); Mean Corpuscular Hemoglobin 32 PG (27-34); Mean Corpuscular Volume 100.9 FL (87-102); Mean Platelet Volume 12.2 FL (9.6-12.0); Monocytes # 1.3 10*3/uL (0.11-0.8); Monocytes % 9.9 % (1.7-12.7); Neutrophils # 11.1 10*3/uL (1.4-7.4); Platelet Count 192 T/CUMM (130-400); Red Blood Count 3.43 MC/CUMM (3.8-5.5); White Blood Count 13.4 T/CUMM (4-12)
[2018-08-30 04:52] LABS: Calcium 8.4 MG/DL (8.5-10.1); Osmolality,Calculated 327.7 MOS/KG (273-304); Potassium 4.6 MMOL/L (3.5-5.1)
[2018-08-30 05:46] LABS: Band Neutrophils 1 % (0-10); Eosinophils 1 % (0-10); Lymphocytes 3 % (20-55); Segmented Neutrophils 90 % (50-85); Total Cells Counted 100
[2018-08-30 05:47] LABS: Hypochromasia Slight; Platelet Estimate Decreased
[2018-08-30] MEDS: HEPARIN 5,000 UNIT/1 ML VIAL SUBCUT SCH (06:05)
[2018-08-30] MEDS: DORNASE ALFA 2.5 MG/2.5 ML VIAL RESP TX SCH ×2 (07:30→19:40)
[2018-08-30] MEDS: LANSOPRAZOLE ODT 30 MG TABLET PO SCH (08:33)
[2018-08-30] MEDS: MAGNESIUM CHLORIDE 64 MG TABLET PO SCH (08:33)
[2018-08-30] MEDS: CARVEDILOL 3.125 MG TABLET PO SCH ×2 (08:33→16:48)
[2018-08-30] MEDS: DILTIAZEM 30 MG TABLET PO SCH ×2 (08:34→16:50)
[2018-08-30] MEDS: APIXABAN 2.5 MG TABLET PO SCH ×2 (08:34→21:35)
[2018-08-30] MEDS: NYSTATIN CREAM 15 GM TUBE TOP SCH ×2 (08:35→21:36)
[2018-08-30] MEDS ORDERED: predniSONE 20 MG TABLET PO SCH (09:00)
[2018-08-30 10:51] LABS: VDRL Spinal Fluid Negative (Negative)
[2018-08-30] MEDS: FLUTICASONE 50 MCG NASAL SPRAY 16 GM BOTTLE BOTH NARES SCH (21:34)
[2018-08-30] MEDS: DONEPEZIL 5 MG TABLET PO SCH (21:35)
[2018-08-30] MEDS: MONTELUKAST 10 MG TABLET PO SCH (21:35)
[2018-08-31] MEDS: DILTIAZEM 30 MG TABLET PO SCH ×2 (00:29→08:29)
[2018-08-31] MEDS: ALBUTEROL/IPRATROPIUM 3 ML NEB RESP TX SCH ×3 (01:32→12:14)
[2018-08-31 04:37] LABS: Basophils # 0.1 10*3/uL (0.0-0.2); Basophils % 0.3 % (0.0-0.8); Eosinophils % 0.1 % (0.00-10.9); Hematocrit 32.5 VOL% (35.7-47.0); Hemoglobin 10.5 GM/DL (12.0-16.0); Immature Granulocytes % 4.9 %; Immature Granulocytes Absolute 0.77 #; Lymphocytes # 0.5 10*3/uL (1.4-4.0); Lymphocytes % 3.3 % (21.3-54.2); Mean Corpuscular HGB Conc 32.3 GM/DL (32-36); Mean Corpuscular Hemoglobin 33 PG (27-34); Mean Corpuscular Volume 102.2 FL (87-102); Mean Platelet Volume 12.1 FL (9.6-12.0); Monocytes # 1.5 10*3/uL (0.11-0.8); Monocytes % 9.7 % (1.7-12.7); Neutrophils % 81.7 % (38.7-73.9); Platelet Count 181 T/CUMM (130-400); Red Blood Count 3.18 MC/CUMM (3.8-5.5); Red Cell Distribution Width 15.1 % (9.3-17.3); White Blood Count 15.8 T/CUMM (4-12)
[2018-08-31 04:43] LABS: PT Patient Result 10.7 SECS
[2018-08-31 04:46] LABS: Osmolality,Calculated 291.2 MOS/KG (273-304); Potassium 4.7 MMOL/L (3.5-5.1)
[2018-08-31 05:09] LABS: Band Neutrophils 1 % (0-10); Lymphocytes 4 % (20-55); Segmented Neutrophils 86 % (50-85); Total Cells Counted 100
[2018-08-31 05:10] LABS: Hypochromasia 1+; Platelet Estimate Normal; Polychromasia Few; Reactive Lymphocytes Few
[2018-08-31] MEDS: DORNASE ALFA 2.5 MG/2.5 ML VIAL RESP TX SCH (07:15)
[2018-08-31] MEDS: MAGNESIUM CHLORIDE 64 MG TABLET PO SCH (08:29)
[2018-08-31] MEDS: APIXABAN 2.5 MG TABLET PO SCH (08:29)
[2018-08-31] MEDS: NYSTATIN CREAM 15 GM TUBE TOP SCH (08:30)
[2018-08-31] MEDS: CARVEDILOL 3.125 MG TABLET PO SCH (08:30)
[2018-08-31] MEDS: LANSOPRAZOLE ODT 30 MG TABLET PO SCH (08:31)
[2018-08-31] MEDS ORDERED: SODIUM CHLORIDE 0.9% 500 ML IV SCH (09:00)
[2018-08-31] MEDS ORDERED: predniSONE 10 MG TABLET PO SCH (09:00)
[2018-08-31] MEDS ORDERED: cefTRIAXone 1,000 MG in SYRINGE 1 EACH IV SCH (09:00)
[2018-08-31 13:48] VITALS: BP 100/62
[2018-08-31 16:41] LABS: West Nile Virus Ab, IgG, CSF Negative (Negative); West Nile Virus Ab, IgM, CSF Negative (Negative)
== END 2018-08-31 15:45 | DRG 177 ==
LOC: N.ED 21:34 → N.EDINP 08-21 01:05 → SUATTDRO 08-21 01:05 → N.5E 08-21 01:48
PROVIDERS: ADMIT Internal Medicine; ATTEND Internal Medicine

== ENCOUNTER 2018-10-24 21:42 | Inpatient (IN) ==
[2018-10-24 23:06] LABS: Basophils # 0.1 10*3/uL (0.0-0.2); Basophils % 0.9 % (0.0-0.8); Eosinophils # 0.1 10*3/uL (0.0-0.87); Immature Granulocytes % 0.5 %; Immature Granulocytes Absolute 0.04 #; Lymphocytes # 0.9 10*3/uL (1.4-4.0); Lymphocytes % 11.9 % (21.3-54.2); Mean Corpuscular HGB Conc 32.1 GM/DL (32-36); Mean Corpuscular Volume 101.8 FL (87-102); Mean Platelet Volume 9.6 FL (9.6-12.0); Monocytes % 8.8 % (1.7-12.7); Neutrophils % 76.9 % (38.7-73.9); Platelet Count 223 T/CUMM (130-400); Red Blood Count 2.75 MC/CUMM (3.8-5.5); Red Cell Distribution Width 16.3 % (9.3-17.3); VBG Base Excess 6.1 MEQ/L (0-4); VBG HCO3 28.9 MEQ/L (24-28); VBG PCO2 34.8 MMHG (41-51); VBG PH 7.537; White Blood Count 7.9 T/CUMM (4-12)
[2018-10-24] MEDS ORDERED: AZITHROMYCIN 250 MG TABLET PO STA (23:43)
[2018-10-24] MEDS ORDERED: cefTRIAXone 1,000 MG in SODIUM CHLORIDE 0.9% 100 ML IV STA (23:43)
[2018-10-24] MEDS ORDERED: FUROSEMIDE 40 MG/4 ML VIAL IV STA (23:49)
[2018-10-24 23:52] LABS: Albumin 3.1 G/DL (3.4-5.0); Bilirubin,Total 0.5 MG/DL (0.2-1.0); Calcium 8.4 MG/DL (8.5-10.1); Osmolality,Calculated 288.4 MOS/KG (273-304); Total Protein 5.7 G/DL (6.4-8.3)
[2018-10-25] MEDS ORDERED: ALBUTEROL 2.5 MG/3 ML NEB RESP TX PRN (02:43)
[2018-10-25] MEDS ORDERED: ACETAMINOPHEN 325 MG TABLET PO PRN (02:43)
[2018-10-25] MEDS ORDERED: ONDANSETRON 4 MG/2 ML VIAL IV PRN (02:43)
[2018-10-25] MEDS ORDERED: CYCLOBENZAPRINE 10 MG TABLET PO PRN (02:43)
[2018-10-25] MEDS ORDERED: VANCOMYCIN INJ 1,250 MG in SODIUM CHLORIDE 0.9% 250 ML IV ONE (03:00)
[2018-10-25] MEDS ORDERED: LEVOFLOXACIN INJ 750 MG in PREMIX 1 EACH IV ONE (03:00)
[2018-10-25] MEDS ORDERED: VANCOMYCIN INJ 750 MG in SODIUM CHLORIDE 0.9% 250 ML IV PRN (03:23)
[2018-10-25 04:33] LABS: Basophils # 0.1 10*3/uL (0.0-0.2); Basophils % 0.7 % (0.0-0.8); Eosinophils # 0.1 10*3/uL (0.0-0.87); Hematocrit 28.9 VOL% (35.7-47.0); Hemoglobin 8.9 GM/DL (12.0-16.0); Immature Granulocytes % 0.6 %; Immature Granulocytes Absolute 0.05 #; Lymphocytes # 0.8 10*3/uL (1.4-4.0); Lymphocytes % 8.4 % (21.3-54.2); Mean Corpuscular HGB Conc 30.8 GM/DL (32-36); Mean Platelet Volume 9.8 FL (9.6-12.0); Monocytes % 7.8 % (1.7-12.7); Neutrophils % 81.5 % (38.7-73.9); Platelet Count 228 T/CUMM (130-400); Red Blood Count 2.78 MC/CUMM (3.8-5.5); Red Cell Distribution Width 16.1 % (9.3-17.3); White Blood Count 9.1 T/CUMM (4-12)
[2018-10-25 04:43] LABS: Osmolality,Calculated 286.5 MOS/KG (273-304)
[2018-10-25 06:02] LABS: Apearance,Urine CLEAR (Clear); Bacteria,Urine Occasional /HPF (Few); Bilirubin,Urine Negative (Negative); Blood, Urine Negative (Negative); Glucose,Urine (UA) Negative (Negative); Ketones,Urine 5 mg/dL (Negative); Nitrite,Urine Negative (Negative); Protein,Urine 100 MG/DL; RBC,Urine 1 /HPF (0-4); Squamous Epithelial Cell,Urine Occasional /HPF (0-10); Urine Color Straw (Yellow); Urine Specific Gravity 1.008 (1.001-1.035); Urine Urobilinogen < 2.0 EU/DL (0.2-1.0); WBC,Urine 2 /HPF (0-6)
[2018-10-25] MEDS: PIPERACILLIN/TAZOBACTAM 3,375 MG in SODIUM CHLORIDE 0.9% 100 ML IV SCH ×2 (06:37→18:23)
[2018-10-25] MEDS: ALBUTEROL/IPRATROPIUM 3 ML NEB RESP TX SCH ×3 (07:09→19:30)
[2018-10-25] MEDS ORDERED: (Ferric Citrate [Auryxia] 420 MG) PO SCH (07:30)
[2018-10-25] MEDS: FOLIC ACID 1 MG TABLET PO SCH (08:09)
[2018-10-25] MEDS: CARVEDILOL 12.5 MG TABLET PO SCH ×2 (08:09→17:02)
[2018-10-25] MEDS: LOSARTAN 50 MG TABLET PO SCH (08:09)
[2018-10-25] MEDS: APIXABAN 2.5 MG TABLET PO SCH ×2 (08:09→20:42)
[2018-10-25] MEDS: DILTIAZEM CD 180 MG CAPSULE PO SCH (08:09)
[2018-10-25] MEDS: ESCITALOPRAM 10 MG TABLET PO SCH (08:09)
[2018-10-25] MEDS: ATROPINE 1 % OPH SOLN 5 ML BOTTLE RIGHT EYE SCH ×2 (08:09→20:42)
[2018-10-25] MEDS ORDERED: EPOETIN ALFA 10,000 UNIT/1 ML VIAL IV PRN (08:57)
[2018-10-25] MEDS ORDERED: VANCOMYCIN INJ 500 MG in SODIUM CHLORIDE 0.9% 100 ML IV ONE (17:00)
[2018-10-25] MEDS: ATORVASTATIN 80 MG TABLET PO SCH (20:42)
[2018-10-25] MEDS: DONEPEZIL 5 MG TABLET PO SCH (20:42)
[2018-10-25] MEDS: FLUTICASONE 50 MCG NASAL SPRAY 16 GM BOTTLE BOTH NARES SCH (20:42)
[2018-10-25] MEDS: PANTOPRAZOLE 20 MG TABLET PO SCH (20:42)
[2018-10-25] MEDS: prednisoLONE ACETATE 1% OPH SUSP 5 ML BOTTLE RIGHT EYE SCH (22:31)
[2018-10-26] MEDS: ALBUTEROL/IPRATROPIUM 3 ML NEB RESP TX SCH ×4 (01:45→18:58)
[2018-10-26 04:49] LABS: Basophils # 0.1 10*3/uL (0.0-0.2); Basophils % 0.8 % (0.0-0.8); Eosinophils # 0.1 10*3/uL (0.0-0.87); Eosinophils % 0.8 % (0.00-10.9); Hematocrit 28.8 VOL% (35.7-47.0); Hemoglobin 8.8 GM/DL (12.0-16.0); Immature Granulocytes % 0.6 %; Immature Granulocytes Absolute 0.06 #; Lymphocytes # 0.8 10*3/uL (1.4-4.0); Lymphocytes % 8.2 % (21.3-54.2); Mean Corpuscular HGB Conc 30.6 GM/DL (32-36); Mean Corpuscular Volume 104.7 FL (87-102); Mean Platelet Volume 9.7 FL (9.6-12.0); Monocytes % 10.8 % (1.7-12.7); Neutrophils % 78.8 % (38.7-73.9); Platelet Count 241 T/CUMM (130-400); Red Blood Count 2.75 MC/CUMM (3.8-5.5); Red Cell Distribution Width 16.2 % (9.3-17.3); White Blood Count 9.8 T/CUMM (4-12)
[2018-10-26 05:15] LABS: Calcium 8.8 MG/DL (8.5-10.1); Osmolality,Calculated 277.5 MOS/KG (273-304)
[2018-10-26] MEDS: PIPERACILLIN/TAZOBACTAM 3,375 MG in SODIUM CHLORIDE 0.9% 100 ML IV SCH ×2 (06:26→17:42)
[2018-10-26] MEDS: ATROPINE 1 % OPH SOLN 5 ML BOTTLE RIGHT EYE SCH ×3 (09:36→20:53)
[2018-10-26] MEDS: prednisoLONE ACETATE 1% OPH SUSP 5 ML BOTTLE RIGHT EYE SCH ×3 (09:37→20:53)
[2018-10-26] MEDS: CARVEDILOL 12.5 MG TABLET PO SCH ×2 (10:31→17:42)
[2018-10-26] MEDS: DILTIAZEM CD 180 MG CAPSULE PO SCH (10:31)
[2018-10-26] MEDS: FOLIC ACID 1 MG TABLET PO SCH (10:31)
[2018-10-26] MEDS: ESCITALOPRAM 10 MG TABLET PO SCH (10:32)
[2018-10-26] MEDS: LOSARTAN 50 MG TABLET PO SCH (10:32)
[2018-10-26] MEDS: APIXABAN 2.5 MG TABLET PO SCH ×2 (10:32→20:52)
[2018-10-26] MEDS: PANTOPRAZOLE 20 MG TABLET PO SCH (20:52)
[2018-10-26] MEDS: FLUTICASONE 50 MCG NASAL SPRAY 16 GM BOTTLE BOTH NARES SCH (20:52)
[2018-10-26] MEDS: ATORVASTATIN 80 MG TABLET PO SCH (20:52)
[2018-10-26] MEDS: DONEPEZIL 5 MG TABLET PO SCH (20:52)
[2018-10-27] MEDS: ALBUTEROL/IPRATROPIUM 3 ML NEB RESP TX SCH ×3 (01:14→14:02)
[2018-10-27] MEDS ORDERED: LEVOFLOXACIN INJ 500 MG in PREMIX 1 EACH IV SCH (03:00)
[2018-10-27 04:55] LABS: Basophils # 0.1 10*3/uL (0.0-0.2); Basophils % 0.9 % (0.0-0.8); Eosinophils # 0.2 10*3/uL (0.0-0.87); Eosinophils % 1.8 % (0.00-10.9); Hematocrit 27.7 VOL% (35.7-47.0); Hemoglobin 8.8 GM/DL (12.0-16.0); Immature Granulocytes % 1.3 %; Immature Granulocytes Absolute 0.11 #; Lymphocytes % 11.8 % (21.3-54.2); Mean Corpuscular HGB Conc 31.8 GM/DL (32-36); Mean Corpuscular Volume 104.5 FL (87-102); Mean Platelet Volume 10.2 FL (9.6-12.0); Monocytes % 11.6 % (1.7-12.7); Neutrophils % 72.6 % (38.7-73.9); Platelet Count 269 T/CUMM (130-400); Red Blood Count 2.65 MC/CUMM (3.8-5.5); Red Cell Distribution Width 16.6 % (9.3-17.3); White Blood Count 8.5 T/CUMM (4-12)
[2018-10-27 05:26] LABS: Calcium 8.4 MG/DL (8.5-10.1); Osmolality,Calculated 281.7 MOS/KG (273-304)
[2018-10-27] MEDS: PIPERACILLIN/TAZOBACTAM 3,375 MG in SODIUM CHLORIDE 0.9% 100 ML IV SCH (05:52)
[2018-10-27] MEDS: CARVEDILOL 12.5 MG TABLET PO SCH ×3 (13:50→17:13)
[2018-10-27] MEDS: APIXABAN 2.5 MG TABLET PO SCH (13:50)
[2018-10-27] MEDS: FOLIC ACID 1 MG TABLET PO SCH (13:50)
[2018-10-27] MEDS: DILTIAZEM CD 180 MG CAPSULE PO SCH (13:50)
[2018-10-27] MEDS: LOSARTAN 50 MG TABLET PO SCH (13:51)
[2018-10-27] MEDS: prednisoLONE ACETATE 1% OPH SUSP 5 ML BOTTLE RIGHT EYE SCH (13:51)
[2018-10-27] MEDS: ATROPINE 1 % OPH SOLN 5 ML BOTTLE RIGHT EYE SCH (13:51)
[2018-10-27] MEDS: ESCITALOPRAM 10 MG TABLET PO SCH (13:51)
[2018-10-27] MEDS ORDERED: DILTIAZEM 25 MG/5 ML VIAL IV ONE (16:36)
[2018-10-27 16:55] VITALS: BP 128/79
== END 2018-10-27 18:39 | disposition home health service (06) | DRG 193 ==
LOC: N.ED 21:42 → N.EDINP 10-25 02:07 → SUATTDRO 10-25 02:07 → N.2E 10-25 02:36
PROVIDERS: ADMIT Internal Medicine; ATTEND Internal Medicine

== ENCOUNTER 2019-03-02 08:49 | Observation (INO) ==
[2019-03-02] MEDS ORDERED: cloNIDine 0.1 MG TABLET PO STA (09:06)
[2019-03-02 09:26] LABS: Basophils # 0.1 10*3/uL (0.0-0.2); Basophils % 0.7 % (0.0-0.8); Eosinophils # 0.2 10*3/uL (0.0-0.87); Hematocrit 37.9 VOL% (35.7-47.0); Hemoglobin 11.5 GM/DL (12.0-16.0); Immature Granulocytes % 0.5 %; Immature Granulocytes Absolute 0.11 #; Lymphocytes % 4.8 % (21.3-54.2); Mean Corpuscular HGB Conc 30.3 GM/DL (32-36); Mean Corpuscular Volume 101.9 FL (87-102); Monocytes % 4.5 % (1.7-12.7); Neutrophils % 88.5 % (38.7-73.9); Platelet Count 286 T/CUMM (130-400); Red Blood Count 3.72 MC/CUMM (3.8-5.5); White Blood Count 20.3 T/CUMM (4-12)
[2019-03-02 09:35] LABS: Albumin 2.7 G/DL (3.4-5.0); Bilirubin,Total 0.4 MG/DL (0.2-1.0); Calcium 8.9 MG/DL (8.5-10.1); Osmolality,Calculated 287.8 MOS/KG (273-304); Total Protein 7.7 G/DL (6.4-8.3)
[2019-03-02 09:36] LABS: Eosinophils 1 % (0-10); Hypochromasia 1+; Lymphocytes 4 % (20-55); Ovalocytes Slight; Platelet Estimate Adequate; Segmented Neutrophils 91 % (50-85); Total Cells Counted 100
[2019-03-02] MEDS ORDERED: ACETAMINOPHEN 325 MG TABLET PO PRN (10:45)
[2019-03-02] MEDS ORDERED: ONDANSETRON 4 MG/2 ML VIAL IV PRN (10:45)
[2019-03-02] MEDS ORDERED: DORZOLAMIDE/TIMOLOL OPH SOLN 10 ML BOTTLE LEFT EYE PRN (11:25)
[2019-03-02] MEDS ORDERED: PREDNISOLONE ACETATE RIGHT EYE PRN (11:30)
[2019-03-02] MEDS ORDERED: Ferric Citrate [Auryxia] 420 MG PO SCH (17:00)
[2019-03-02] MEDS: FLUTICASONE 50 MCG NASAL SPRAY 16 GM BOTTLE BOTH NARES SCH (20:30)
[2019-03-02] MEDS: ATROPINE 1 % OPH SOLN 5 ML BOTTLE RIGHT EYE SCH (20:30)
[2019-03-02] MEDS: ATORVASTATIN 40 MG TABLET PO SCH (20:31)
[2019-03-02] MEDS: DONEPEZIL 5 MG TABLET PO SCH (20:31)
[2019-03-02] MEDS: APIXABAN 2.5 MG TABLET PO SCH (20:31)
[2019-03-02] MEDS: carvediloL 12.5 MG TABLET PO SCH (20:31)
[2019-03-03 05:32] LABS: Basophils # 0.1 10*3/uL (0.0-0.2); Basophils % 0.6 % (0.0-0.8); Eosinophils % 0.3 % (0.00-10.9); Hemoglobin 9.8 GM/DL (12.0-16.0); Immature Granulocytes % 0.5 %; Immature Granulocytes Absolute 0.08 #; Lymphocytes # 0.6 10*3/uL (1.4-4.0); Mean Corpuscular HGB Conc 30.6 GM/DL (32-36); Mean Corpuscular Volume 100.3 FL (87-102); Mean Platelet Volume 10.2 FL (9.6-12.0); Monocytes % 6.6 % (1.7-12.7); Platelet Count 246 T/CUMM (130-400); Red Blood Count 3.19 MC/CUMM (3.8-5.5); Red Cell Distribution Width 17.1 % (9.3-17.3)
[2019-03-03 05:57] LABS: Calcium 8.8 MG/DL (8.5-10.1); Osmolality,Calculated 280.7 MOS/KG (273-304); Thyroid Stimulating Hormone 1.69 uIU/ml (0.358-3.74)
[2019-03-03 06:14] LABS: Hypochromasia 1+; Lymphocytes 3 % (20-55); Segmented Neutrophils 90 % (50-85); Total Cells Counted 100
[2019-03-03 06:15] LABS: Anisocytosis 1+; Microcytosis 1+; Ovalocytes Slight
[2019-03-03 06:16] LABS: Platelet Estimate Normal
[2019-03-03] MEDS: carvediloL 12.5 MG TABLET PO SCH ×2 (09:22→21:29)
[2019-03-03] MEDS: FOLIC ACID 1 MG TABLET PO SCH (09:23)
[2019-03-03] MEDS: APIXABAN 2.5 MG TABLET PO SCH ×2 (09:23→21:28)
[2019-03-03] MEDS: LOSARTAN 50 MG TABLET PO SCH (09:23)
[2019-03-03] MEDS: DILTIAZEM CD 180 MG CAPSULE PO SCH (09:23)
[2019-03-03] MEDS: ATROPINE 1 % OPH SOLN 5 ML BOTTLE RIGHT EYE SCH ×2 (09:24→21:28)
[2019-03-03] MEDS: PANTOPRAZOLE 40 MG TABLET PO SCH (09:28)
[2019-03-03] MEDS: ESCITALOPRAM 10 MG TABLET PO SCH (09:28)
[2019-03-03] MEDS: ATORVASTATIN 40 MG TABLET PO SCH (21:28)
[2019-03-03] MEDS: FLUTICASONE 50 MCG NASAL SPRAY 16 GM BOTTLE BOTH NARES SCH (21:28)
[2019-03-03] MEDS: DONEPEZIL 5 MG TABLET PO SCH (21:29)
[2019-03-04 06:12] LABS: Basophils # 0.1 10*3/uL (0.0-0.2); Basophils % 0.5 % (0.0-0.8); Eosinophils # 0.1 10*3/uL (0.0-0.87); Eosinophils % 0.7 % (0.00-10.9); Hematocrit 29.5 VOL% (35.7-47.0); Hemoglobin 9.1 GM/DL (12.0-16.0); Immature Granulocytes % 0.6 %; Immature Granulocytes Absolute 0.07 #; Lymphocytes # 0.5 10*3/uL (1.4-4.0); Mean Corpuscular HGB Conc 30.8 GM/DL (32-36); Mean Platelet Volume 10.3 FL (9.6-12.0); Monocytes % 8.5 % (1.7-12.7); Neutrophils % 85.7 % (38.7-73.9); Platelet Count 228 T/CUMM (130-400); Red Blood Count 2.92 MC/CUMM (3.8-5.5); Red Cell Distribution Width 17.2 % (9.3-17.3); White Blood Count 12.3 T/CUMM (4-12)
[2019-03-04 06:34] LABS: Calcium 8.6 MG/DL (8.5-10.1); Osmolality,Calculated 273.1 MOS/KG (273-304)
[2019-03-04 07:46] LABS: Anisocytosis 1+; Band Neutrophils 3 % (0-10); Eosinophils 1 % (0-10); Lymphocytes 5 % (20-55); Macrocytosis Slight; Platelet Estimate Normal; Segmented Neutrophils 84 % (50-85); Total Cells Counted 100
[2019-03-04 07:47] LABS: Basophilic Stippling Slight; Poikilocytosis Slight
[2019-03-04] MEDS: PANTOPRAZOLE 40 MG TABLET PO SCH (08:00)
[2019-03-04] MEDS: ESCITALOPRAM 10 MG TABLET PO SCH (08:00)
[2019-03-04] MEDS: LOSARTAN 50 MG TABLET PO SCH (08:00)
[2019-03-04] MEDS: carvediloL 12.5 MG TABLET PO SCH (08:00)
[2019-03-04] MEDS: FOLIC ACID 1 MG TABLET PO SCH (08:01)
[2019-03-04] MEDS: DILTIAZEM CD 180 MG CAPSULE PO SCH (08:01)
[2019-03-04] MEDS: APIXABAN 2.5 MG TABLET PO SCH (08:01)
[2019-03-04] MEDS: ATROPINE 1 % OPH SOLN 5 ML BOTTLE RIGHT EYE SCH (08:01)
[2019-03-04 13:01] VITALS: BP 105/44
== END 2019-03-04 13:50 | disposition home or self-care (01) ==
LOC: N.ED 08:49 → N.EDINP 10:42 → INTOOBSV 10:42 → N.5E 11:04
PROVIDERS: ADMIT Internal Medicine; ATTEND Internal Medicine

== ENCOUNTER 2019-03-28 08:03 | Inpatient (IN) ==
[2019-03-28] MEDS ORDERED: ASPIRIN 325 MG TABLET PO STA (08:21)
[2019-03-28] MEDS ORDERED: FUROSEMIDE 40 MG/4 ML VIAL ONE (08:32)
[2019-03-28] MEDS ORDERED: FUROSEMIDE 40 MG/4 ML VIAL IV STA (08:33)
[2019-03-28 09:17] LABS: Basophils # 0.2 10*3/uL (0.0-0.2); Eosinophils % 0.1 % (0.00-10.9); Hematocrit 31.1 VOL% (35.7-47.0); Hemoglobin 9.3 GM/DL (12.0-16.0); Immature Granulocytes % 0.6 %; Immature Granulocytes Absolute 0.09 #; Lymphocytes # 0.8 10*3/uL (1.4-4.0); Lymphocytes % 5.5 % (21.3-54.2); Mean Corpuscular HGB Conc 29.9 GM/DL (32-36); Mean Corpuscular Volume 97.2 FL (87-102); Mean Platelet Volume 9.7 FL (9.6-12.0); Monocytes % 6.1 % (1.7-12.7); Neutrophils % 86.7 % (38.7-73.9); Platelet Count 487 T/CUMM (130-400); Red Cell Distribution Width 17.8 % (9.3-17.3); White Blood Count 14.4 T/CUMM (4-12)
[2019-03-28 09:36] LABS: Hypochromasia 1+; Microcytosis 1+; Platelet Estimate Adequate
[2019-03-28 09:45] LABS: Alanine Aminotransferase < 6 U/L (13-56); Albumin 1.9 G/DL (3.4-5.0); Alkaline Phosphatase 105 U/L (45-117); Aspartate Amino Transferase 11 U/L (0-37); Blood Urea Nitrogen 20 MG/DL (7-18); Calcium 8.1 MG/DL (8.5-10.1); Estimated Glom Filtration Rate 10 ML/MIN; Glucose 91 MG/DL (74-106); Osmolality,Calculated 268.4 MOS/KG (273-304); Total Protein 6.8 G/DL (6.4-8.3)
[2019-03-28 09:49] LABS: PT Patient Result 10.7 SECS (9.6-12.2); Partial Thromboplastin Time 29.6 SECS (20.8-36.0)
[2019-03-28] MEDS ORDERED: NICOTINE 21 MG/24 HR PATCH TRANSDERM PRN (10:31)
[2019-03-28] MEDS ORDERED: ONDANSETRON 4 MG/2 ML VIAL IV PRN (10:31)
[2019-03-28] MEDS ORDERED: MORPHINE 4 MG/1 ML VIAL IV PRN (10:31)
[2019-03-28] MEDS ORDERED: carvediloL 3.125 MG TABLET ONE (10:35)
[2019-03-28] MEDS ORDERED: carvediloL 3.125 MG TABLET PO STA (10:41)
[2019-03-28 11:24] LABS: Albumin 1.9 G/DL (3.4-5.0)
[2019-03-28 14:30] LABS: Apearance,Urine Slightly Hazy (Clear); Bacteria,Urine Occasional /HPF (Few); Barbiturates Screen,Urine Negative (Negative); Benzodiazepines Screen,Urine Negative (Negative); Bilirubin,Urine Negative (Negative); Blood, Urine Negative (Negative); Cannabinoid Screen,Urine Negative (Negative); Glucose,Urine (UA) Negative (Negative); Ketones,Urine Negative (Negative); Mucus,Urine Occasional /LPF (Occasional); Nitrite,Urine Negative (Negative); Opiate Screen,Urine Negative (Negative); Phencyclidine Screen,Urine Negative (Negative); Protein,Urine Negative; RBC,Urine 1 /HPF (0-4); Squamous Epithelial Cell,Urine Few /HPF (0-10); Transitional Epi Cells,Urine Occasional /HPF (<1); Urine Color Straw (Yellow); Urine Specific Gravity 1.004 (1.001-1.035); Urine Urobilinogen < 2.0 EU/DL (0.2-1.0); WBC,Urine 17 /HPF (0-6)
[2019-03-28] MEDS: cefTRIAXone 1,000 MG in SYRINGE 1 EACH IV SCH (15:28)
[2019-03-28] MEDS: FUROSEMIDE 40 MG/4 ML VIAL IV SCH (15:28)
[2019-03-28] MEDS ORDERED: hydrALAZINE 20 MG/1 ML VIAL IV PRN (16:04)
[2019-03-29 05:00] LABS: Basophils # 0.2 10*3/uL (0.0-0.2); Basophils % 1.5 % (0.0-0.8); Eosinophils # 0.1 10*3/uL (0.0-0.87); Eosinophils % 0.9 % (0.00-10.9); Hematocrit 27.3 VOL% (35.7-47.0); Hemoglobin 8.2 GM/DL (12.0-16.0); Immature Granulocytes % 0.8 %; Lymphocytes # 1.1 10*3/uL (1.4-4.0); Lymphocytes % 9.1 % (21.3-54.2); Mean Corpuscular Volume 97.2 FL (87-102); Mean Platelet Volume 9.5 FL (9.6-12.0); Monocytes % 6.5 % (1.7-12.7); Neutrophils % 81.2 % (38.7-73.9); Platelet Count 472 T/CUMM (130-400); Red Blood Count 2.81 MC/CUMM (3.8-5.5); Red Cell Distribution Width 17.9 % (9.3-17.3); White Blood Count 12.2 T/CUMM (4-12)
[2019-03-29 05:17] LABS: Alanine Aminotransferase < 6 U/L (13-56); Albumin 1.6 G/DL (3.4-5.0); Alkaline Phosphatase 93 U/L (45-117); Aspartate Amino Transferase 8 U/L (0-37); Blood Urea Nitrogen 30 MG/DL (7-18); Calcium 8.4 MG/DL (8.5-10.1); Estimated Glom Filtration Rate 8 ML/MIN; Glucose 93 MG/DL (74-106); Osmolality,Calculated 267.7 MOS/KG (273-304); Thyroid Stimulating Hormone 0.926 uIU/ml (0.358-3.74); Total Protein 6.9 G/DL (6.4-8.3)
[2019-03-29] MEDS: LOSARTAN 50 MG TABLET PO SCH (08:53)
[2019-03-29] MEDS: DILTIAZEM CD 180 MG CAPSULE PO SCH (08:53)
[2019-03-29] MEDS: FOLIC ACID 1 MG TABLET PO SCH (08:53)
[2019-03-29] MEDS: PANTOPRAZOLE 40 MG TABLET PO SCH (08:53)
[2019-03-29] MEDS: FUROSEMIDE 40 MG/4 ML VIAL IV SCH (08:54)
[2019-03-29] MEDS ORDERED: carvediloL 12.5 MG TABLET PO SCH (09:00)
[2019-03-29] MEDS ORDERED: hydrALAZINE 20 MG/1 ML VIAL IV PRN (15:32)
[2019-03-29] MEDS: cefTRIAXone 1,000 MG in SYRINGE 1 EACH IV SCH (19:11)
[2019-03-29] MEDS: ALBUTEROL/IPRATROPIUM 3 ML NEB RESP TX SCH ×2 (19:28→22:29)
[2019-03-29] MEDS: PIPERACILLIN/TAZOBACTAM 3,375 MG in SODIUM CHLORIDE 0.9% 100 ML IV SCH (20:23)
[2019-03-29] MEDS: ATORVASTATIN 40 MG TABLET PO SCH (20:24)
[2019-03-29] MEDS: carvediloL 25 MG TABLET PO SCH (20:24)
[2019-03-29] MEDS: DONEPEZIL 5 MG TABLET PO SCH (20:24)
[2019-03-30] MEDS: ALBUTEROL/IPRATROPIUM 3 ML NEB RESP TX SCH ×6 (02:28→22:55)
[2019-03-30] MEDS: PIPERACILLIN/TAZOBACTAM 3,375 MG in SODIUM CHLORIDE 0.9% 100 ML IV SCH ×2 (03:28→16:13)
[2019-03-30 07:17] LABS: Basophils # 0.2 10*3/uL (0.0-0.2); Basophils % 1.3 % (0.0-0.8); Eosinophils # 0.1 10*3/uL (0.0-0.87); Eosinophils % 0.7 % (0.00-10.9); Hematocrit 25.6 VOL% (35.7-47.0); Hemoglobin 7.5 GM/DL (12.0-16.0); Immature Granulocytes % 0.9 %; Immature Granulocytes Absolute 0.12 #; Lymphocytes # 0.7 10*3/uL (1.4-4.0); Lymphocytes % 5.4 % (21.3-54.2); Mean Corpuscular HGB Conc 29.3 GM/DL (32-36); Mean Corpuscular Volume 97.7 FL (87-102); Mean Platelet Volume 9.5 FL (9.6-12.0); Monocytes % 4.8 % (1.7-12.7); Neutrophils % 86.9 % (38.7-73.9); Platelet Count 447 T/CUMM (130-400); Red Blood Count 2.62 MC/CUMM (3.8-5.5); Red Cell Distribution Width 17.8 % (9.3-17.3); White Blood Count 13.5 T/CUMM (4-12)
[2019-03-30 07:36] LABS: Alanine Aminotransferase < 6 U/L (13-56); Albumin 1.4 G/DL (3.4-5.0); Alkaline Phosphatase 89 U/L (45-117); Aspartate Amino Transferase 8 U/L (0-37); Blood Urea Nitrogen 18 MG/DL (7-18); Calcium 8.2 MG/DL (8.5-10.1); Estimated Glom Filtration Rate 13 ML/MIN; Glucose 109 MG/DL (74-106); Osmolality,Calculated 268.4 MOS/KG (273-304); Total Protein 6.6 G/DL (6.4-8.3)
[2019-03-30] MEDS: FOLIC ACID 1 MG TABLET PO SCH (10:13)
[2019-03-30] MEDS: PANTOPRAZOLE 40 MG TABLET PO SCH (10:13)
[2019-03-30] MEDS: carvediloL 25 MG TABLET PO SCH (10:13)
[2019-03-30] MEDS: DILTIAZEM CD 180 MG CAPSULE PO SCH (10:16)
[2019-03-30] MEDS: LOSARTAN 50 MG TABLET PO SCH (12:10)
[2019-03-30] MEDS ORDERED: SODIUM CHLORIDE 0.9% 1,000 ML IV PRN (16:08)
[2019-03-30 16:34] LABS: Total Protein,Body Fluid 2.3 G/DL
[2019-03-30 19:03] LABS: Lymphocytes,Pleural Fluid 21 %; Monocytes,Pleural Fluid 25 %; Neutrophils,Pleural Fluid 54 %; RBC,Pleural Fluid 11089 T/CUMM
[2019-03-30] MEDS: DONEPEZIL 5 MG TABLET PO SCH (20:53)
[2019-03-30] MEDS: ATORVASTATIN 40 MG TABLET PO SCH (20:53)
[2019-03-31] MEDS: ALBUTEROL/IPRATROPIUM 3 ML NEB RESP TX SCH ×6 (03:31→23:40)
[2019-03-31] MEDS: PIPERACILLIN/TAZOBACTAM 3,375 MG in SODIUM CHLORIDE 0.9% 100 ML IV SCH ×2 (04:23→17:31)
[2019-03-31 06:03] LABS: Basophils # 0.1 10*3/uL (0.0-0.2); Basophils % 1.3 % (0.0-0.8); Eosinophils # 0.2 10*3/uL (0.0-0.87); Eosinophils % 2.2 % (0.00-10.9); Hematocrit 23.9 VOL% (35.7-47.0); Hemoglobin 7.1 GM/DL (12.0-16.0); Immature Granulocytes % 0.7 %; Immature Granulocytes Absolute 0.07 #; Lymphocytes # 1.2 10*3/uL (1.4-4.0); Lymphocytes % 11.7 % (21.3-54.2); Mean Corpuscular HGB Conc 29.7 GM/DL (32-36); Mean Corpuscular Volume 97.2 FL (87-102); Mean Platelet Volume 9.3 FL (9.6-12.0); Monocytes % 7.7 % (1.7-12.7); Neutrophils % 76.4 % (38.7-73.9); Platelet Count 480 T/CUMM (130-400); Red Blood Count 2.46 MC/CUMM (3.8-5.5); Red Cell Distribution Width 17.8 % (9.3-17.3); White Blood Count 10.4 T/CUMM (4-12)
[2019-03-31 06:33] LABS: Calcium 8.3 MG/DL (8.5-10.1); Osmolality,Calculated 274.1 MOS/KG (273-304)
[2019-03-31] MEDS: FOLIC ACID 1 MG TABLET PO SCH (08:17)
[2019-03-31] MEDS: carvediloL 3.125 MG TABLET PO SCH ×2 (08:17→17:30)
[2019-03-31] MEDS: PANTOPRAZOLE 40 MG TABLET PO SCH (08:17)
[2019-03-31 18:37] LABS: Hematocrit 29.6 VOL% (35.7-47.0); Hemoglobin 8.9 GM/DL (12.0-16.0)
[2019-03-31] MEDS: ATORVASTATIN 40 MG TABLET PO SCH (21:27)
[2019-03-31] MEDS: DONEPEZIL 5 MG TABLET PO SCH (21:27)
[2019-04-01] MEDS: ALBUTEROL/IPRATROPIUM 3 ML NEB RESP TX SCH ×6 (03:28→23:12)
[2019-04-01] MEDS: PIPERACILLIN/TAZOBACTAM 3,375 MG in SODIUM CHLORIDE 0.9% 100 ML IV SCH ×2 (03:56→16:35)
[2019-04-01 06:37] LABS: Basophils # 0.2 10*3/uL (0.0-0.2); Basophils % 1.5 % (0.0-0.8); Eosinophils # 0.2 10*3/uL (0.0-0.87); Eosinophils % 1.8 % (0.00-10.9); Hemoglobin 8.3 GM/DL (12.0-16.0); Immature Granulocytes % 0.4 %; Immature Granulocytes Absolute 0.05 #; Lymphocytes # 1.2 10*3/uL (1.4-4.0); Lymphocytes % 10.6 % (21.3-54.2); Mean Corpuscular HGB Conc 29.6 GM/DL (32-36); Mean Corpuscular Volume 97.2 FL (87-102); Mean Platelet Volume 9.1 FL (9.6-12.0); Neutrophils % 77.7 % (38.7-73.9); Platelet Count 451 T/CUMM (130-400); Red Blood Count 2.88 MC/CUMM (3.8-5.5); Red Cell Distribution Width 18.1 % (9.3-17.3); White Blood Count 11.4 T/CUMM (4-12)
[2019-04-01 06:53] LABS: Calcium 8.2 MG/DL (8.5-10.1); Osmolality,Calculated 267.2 MOS/KG (273-304)
[2019-04-01] MEDS: carvediloL 3.125 MG TABLET PO SCH ×2 (10:01→16:35)
[2019-04-01] MEDS: FOLIC ACID 1 MG TABLET PO SCH (10:01)
[2019-04-01] MEDS: PANTOPRAZOLE 40 MG TABLET PO SCH (10:01)
[2019-04-01] MEDS: ATORVASTATIN 40 MG TABLET PO SCH (20:17)
[2019-04-01] MEDS: DONEPEZIL 5 MG TABLET PO SCH (20:17)
[2019-04-02] MEDS: ALBUTEROL/IPRATROPIUM 3 ML NEB RESP TX SCH ×5 (03:22→19:51)
[2019-04-02] MEDS: PIPERACILLIN/TAZOBACTAM 3,375 MG in SODIUM CHLORIDE 0.9% 100 ML IV SCH ×2 (03:39→16:37)
[2019-04-02 05:08] LABS: Basophils # 0.2 10*3/uL (0.0-0.2); Basophils % 1.6 % (0.0-0.8); Eosinophils # 0.3 10*3/uL (0.0-0.87); Eosinophils % 1.8 % (0.00-10.9); Hemoglobin 8.5 GM/DL (12.0-16.0); Immature Granulocytes % 0.7 %; Lymphocytes # 1.3 10*3/uL (1.4-4.0); Lymphocytes % 8.8 % (21.3-54.2); Mean Corpuscular HGB Conc 29.3 GM/DL (32-36); Mean Platelet Volume 9.4 FL (9.6-12.0); Monocytes % 6.5 % (1.7-12.7); Neutrophils % 80.6 % (38.7-73.9); Platelet Count 458 T/CUMM (130-400); Red Blood Count 2.93 MC/CUMM (3.8-5.5); Red Cell Distribution Width 17.8 % (9.3-17.3); White Blood Count 14.8 T/CUMM (4-12)
[2019-04-02 05:31] LABS: Calcium 8.3 MG/DL (8.5-10.1); Osmolality,Calculated 269.4 MOS/KG (273-304)
[2019-04-02] MEDS: carvediloL 3.125 MG TABLET PO SCH ×2 (08:52→16:37)
[2019-04-02] MEDS: PANTOPRAZOLE 40 MG TABLET PO SCH (08:52)
[2019-04-02] MEDS: FOLIC ACID 1 MG TABLET PO SCH (08:52)
[2019-04-02] MEDS ORDERED: VANCOMYCIN INJ 1,000 MG in SODIUM CHLORIDE 0.9% 250 ML IV ONE (14:00)
[2019-04-02] MEDS: DONEPEZIL 5 MG TABLET PO SCH (20:24)
[2019-04-02] MEDS: ATORVASTATIN 40 MG TABLET PO SCH (20:25)
[2019-04-03] MEDS: ALBUTEROL/IPRATROPIUM 3 ML NEB RESP TX SCH ×4 (00:35→11:18)
[2019-04-03] MEDS: PIPERACILLIN/TAZOBACTAM 3,375 MG in SODIUM CHLORIDE 0.9% 100 ML IV SCH (03:47)
[2019-04-03 06:18] LABS: Basophils # 0.3 10*3/uL (0.0-0.2); Basophils % 1.9 % (0.0-0.8); Eosinophils # 0.5 10*3/uL (0.0-0.87); Eosinophils % 2.9 % (0.00-10.9); Hematocrit 30.2 VOL% (35.7-47.0); Hemoglobin 9.3 GM/DL (12.0-16.0); Immature Granulocytes % 0.7 %; Immature Granulocytes Absolute 0.12 #; Lymphocytes # 1.1 10*3/uL (1.4-4.0); Lymphocytes % 6.4 % (21.3-54.2); Mean Corpuscular HGB Conc 30.8 GM/DL (32-36); Mean Corpuscular Volume 97.4 FL (87-102); Mean Platelet Volume 9.4 FL (9.6-12.0); Monocytes % 5.5 % (1.7-12.7); Neutrophils % 82.6 % (38.7-73.9); Platelet Count 473 T/CUMM (130-400); Red Cell Distribution Width 17.3 % (9.3-17.3); White Blood Count 16.7 T/CUMM (4-12)
[2019-04-03 06:25] LABS: Calcium 8.6 MG/DL (8.5-10.1); Osmolality,Calculated 265.9 MOS/KG (273-304)
[2019-04-03 07:37] VITALS: BP 153/74
[2019-04-03] MEDS: carvediloL 3.125 MG TABLET PO SCH (08:35)
[2019-04-03] MEDS: FOLIC ACID 1 MG TABLET PO SCH (08:35)
[2019-04-03] MEDS: PANTOPRAZOLE 40 MG TABLET PO SCH (08:35)
[2019-04-03] MEDS ORDERED: VANCOMYCIN INJ 250 MG in SODIUM CHLORIDE 0.9% 100 ML IV PRN (17:00)
== END 2019-04-03 14:33 | disposition home health service (06) | DRG 291 ==
LOC: EDUNIT# → EDBD → N.EDINP 08:03 → N.ED 08:03 → N.2W 11:32 → SUATTDRO 15:06 → N.5E 17:30
PROVIDERS: ADMIT Internal Medicine; ATTEND Internal Medicine
PROC: IRTHORA (2019-03-30 15:09)

== ENCOUNTER 2019-04-10 08:29 | Observation (INO) ==
[2019-04-10] MEDS ORDERED: MORPHINE 4 MG/1 ML VIAL IV STA (09:05)
[2019-04-10 10:10] LABS: Basophils # 0.3 10*3/uL (0.0-0.2); Basophils % 2.1 % (0.0-0.8); Eosinophils # 0.2 10*3/uL (0.0-0.87); Eosinophils % 1.4 % (0.00-10.9); Hematocrit 26.5 VOL% (35.7-47.0); Hemoglobin 8.1 GM/DL (12.0-16.0); Immature Granulocytes % 0.8 %; Lymphocytes # 0.8 10*3/uL (1.4-4.0); Lymphocytes % 6.5 % (21.3-54.2); Mean Corpuscular HGB Conc 30.6 GM/DL (32-36); Mean Platelet Volume 9.5 FL (9.6-12.0); Monocytes % 5.3 % (1.7-12.7); Neutrophils % 83.9 % (38.7-73.9); Platelet Count 351 T/CUMM (130-400); Red Blood Count 2.76 MC/CUMM (3.8-5.5); Red Cell Distribution Width 16.3 % (9.3-17.3); White Blood Count 12.5 T/CUMM (4-12)
[2019-04-10] MEDS ORDERED: ONDANSETRON 4 MG/2 ML VIAL IV PRN (11:32)
[2019-04-10] MEDS ORDERED: ACETAMINOPHEN 325 MG TABLET PO PRN (11:32)
[2019-04-10 11:33] LABS: Alanine Aminotransferase < 9 U/L (13-56); Albumin 1.7 G/DL (3.4-5.0); Alkaline Phosphatase 85 U/L (45-117); Aspartate Amino Transferase 14 U/L (0-37); Blood Urea Nitrogen 34 MG/DL (7-18); Estimated Glom Filtration Rate 5 ML/MIN; Glucose 76 MG/DL (74-106); Osmolality,Calculated 276.1 MOS/KG (273-304); Total Protein 7.4 G/DL (6.4-8.3)
[2019-04-10 12:36] LABS: Risk Ratio 2.92; Thyroid Stimulating Hormone 1.78 uIU/ml (0.358-3.74); VLDL CHOLESTEROL 20.6 MG/DL
[2019-04-10] MEDS ORDERED: hydrALAZINE 20 MG/1 ML VIAL IV PRN (14:42)
[2019-04-10] MEDS ORDERED: ALBUTEROL/IPRATROPIUM 3 ML NEB RESP TX PRN (14:48)
[2019-04-10] MEDS ORDERED: NICOTINE 21 MG/24 HR PATCH TRANSDERM PRN (14:53)
[2019-04-10] MEDS ORDERED: DORZOLAMIDE/TIMOLOL OPH SOLN 10 ML BOTTLE RIGHT EYE PRN (14:53)
[2019-04-10] MEDS ORDERED: ATROPINE 1 % OPH SOLN 5 ML BOTTLE RIGHT EYE PRN (14:53)
[2019-04-10] MEDS ORDERED: prednisoLONE ACETATE 1% OPH SUSP 5 ML BOTTLE RIGHT EYE PRN (14:53)
[2019-04-10] MEDS ORDERED: MAGNESIUM SULF RIDER 2 GM in PREMIX 1 EACH IV ONE (16:12)
[2019-04-10] MEDS: carvediloL 3.125 MG TABLET PO SCH (17:36)
[2019-04-10] MEDS: ALBUTEROL/IPRATROPIUM 3 ML NEB RESP TX SCH (20:24)
[2019-04-10] MEDS ORDERED: DOXYCYCLINE HYCLATE 100 MG CAPSULE PO SCH (21:00)
[2019-04-10] MEDS ORDERED: ATORVASTATIN 40 MG TABLET PO SCH (21:00)
[2019-04-10] MEDS ORDERED: DONEPEZIL 5 MG TABLET PO SCH (21:00)
[2019-04-10] MEDS ORDERED: FLUTICASONE 50 MCG NASAL SPRAY 16 GM BOTTLE BOTH NARES SCH (21:00)
[2019-04-10] MEDS ORDERED: CLINDAMYCIN 300 MG CAPSULE PO SCH (21:00)
[2019-04-10] MEDS: APIXABAN 2.5 MG TABLET PO SCH (21:02)
[2019-04-10] MEDS ORDERED: ALUMINUM/MAGNES/SIMETH MAX STR 30 ML UDCUP PO PRN (23:24)
[2019-04-11] MEDS: ALBUTEROL/IPRATROPIUM 3 ML NEB RESP TX SCH ×3 (00:47→12:31)
[2019-04-11 05:48] LABS: Calcium 8.5 MG/DL (8.5-10.1)
[2019-04-11 05:49] LABS: Osmolality,Calculated 267.4 MOS/KG (273-304)
[2019-04-11] MEDS ORDERED: ESCITALOPRAM 10 MG TABLET PO SCH (09:00)
[2019-04-11] MEDS ORDERED: DILTIAZEM CD 180 MG CAPSULE PO SCH (09:00)
[2019-04-11] MEDS ORDERED: FOLIC ACID 1 MG TABLET PO SCH (09:00)
[2019-04-11] MEDS ORDERED: PANTOPRAZOLE 40 MG TABLET PO SCH (09:00)
[2019-04-11] MEDS ORDERED: LOSARTAN 50 MG TABLET PO SCH (09:00)
[2019-04-11] MEDS: APIXABAN 2.5 MG TABLET PO SCH (09:19)
[2019-04-11] MEDS: carvediloL 3.125 MG TABLET PO SCH (09:20)
[2019-04-11 12:08] VITALS: BP 153/77
== END 2019-04-11 13:06 | disposition home or self-care (01) ==
LOC: EDBD → EDUNIT# → N.ED 08:29 → N.EDINP 08:29 → N.2W 14:36
PROVIDERS: ADMIT Internal Medicine; ATTEND Internal Medicine

== ENCOUNTER 2019-05-15 01:50 | Inpatient (IN) ==
[2019-05-15 02:35] LABS: Basophils # 0.1 10*3/uL (0.0-0.2); Basophils % 0.6 % (0.0-0.8); Eosinophils # 0.2 10*3/uL (0.0-0.87); Eosinophils % 0.9 % (0.00-10.9); Hemoglobin 11.8 GM/DL (12.0-16.0); Immature Granulocytes % 0.5 %; Lymphocytes % 5.5 % (21.3-54.2); Mean Corpuscular HGB Conc 29.8 GM/DL (32-36); Mean Corpuscular Volume 97.8 FL (87-102); Mean Platelet Volume 9.5 FL (9.6-12.0); Monocytes % 2.7 % (1.7-12.7); Neutrophils % 89.8 % (38.7-73.9); Platelet Count 362 T/CUMM (130-400); Red Blood Count 4.05 MC/CUMM (3.8-5.5); White Blood Count 18.3 T/CUMM (4-12)
[2019-05-15 02:45] LABS: Hematocrit 39.1 VOL% (35.7-47.0)
[2019-05-15 03:01] LABS: Albumin 2.4 G/DL (3.4-5.0); Bilirubin,Total 0.4 MG/DL (0.2-1.0); Calcium 8.3 MG/DL (8.5-10.1)
[2019-05-15] MEDS ORDERED: FUROSEMIDE 40 MG/4 ML VIAL IV STA (03:10)
[2019-05-15] MEDS ORDERED: NITROGLYCERIN SL 0.4 MG TABLET SL STA ×2 (03:10)
[2019-05-15] MEDS ORDERED: hydrALAZINE 20 MG/1 ML VIAL IV STA (03:11)
[2019-05-15] MEDS ORDERED: CEFEPIME 1,000 MG in SODIUM CHLORIDE 0.9% 100 ML IV STA (03:11)
[2019-05-15] MEDS ORDERED: VANCOMYCIN INJ 750 MG in SODIUM CHLORIDE 0.9% 250 ML IV STA (03:12)
[2019-05-15] MEDS ORDERED: MAGNESIUM SULF RIDER 2 GM in PREMIX 1 EACH IV STA (03:12)
[2019-05-15] MEDS ORDERED: VANCOMYCIN INJ 1,000 MG in SODIUM CHLORIDE 0.9% 250 ML IV STA (03:15)
[2019-05-15] MEDS ORDERED: VANCOMYCIN 1,000 MG VIAL ONE (03:15)
[2019-05-15] MEDS ORDERED: NITROGLYCERIN DRIP 50 MG/250 ML BOTTLE IV PRN (04:09)
[2019-05-15] MEDS ORDERED: niCARdipine INJ 50 MG in SODIUM CHLORIDE 0.9% 230 ML IV PRN (04:40)
[2019-05-15] MEDS ORDERED: ONDANSETRON 4 MG/2 ML VIAL IV PRN (04:55)
[2019-05-15] MEDS ORDERED: HEPARIN 5,000 UNIT/1 ML VIAL SUBCUT SCH (05:30)
[2019-05-15] MEDS: APIXABAN 2.5 MG TABLET PO SCH ×2 (08:40→21:50)
[2019-05-15] MEDS: carvediloL 12.5 MG TABLET PO SCH ×2 (08:40→17:52)
[2019-05-15] MEDS: LOSARTAN 50 MG TABLET PO SCH (08:40)
[2019-05-15] MEDS: FOLIC ACID 1 MG TABLET PO SCH (08:40)
[2019-05-15] MEDS: DILTIAZEM CD 180 MG CAPSULE PO SCH (08:40)
[2019-05-15] MEDS: PANTOPRAZOLE 40 MG TABLET PO SCH (08:41)
[2019-05-15] MEDS ORDERED: DONEPEZIL 5 MG TABLET PO SCH (21:00)
[2019-05-15] MEDS ORDERED: FLUTICASONE 50 MCG NASAL SPRAY 16 GM BOTTLE BOTH NARES SCH (21:00)
[2019-05-15] MEDS ORDERED: ATORVASTATIN 40 MG TABLET PO SCH (21:00)
[2019-05-15] MEDS ORDERED: prednisoLONE ACETATE 1% OPH SUSP 5 ML BOTTLE RIGHT EYE PRN (21:08)
[2019-05-15] MEDS ORDERED: DORZOLAMIDE/TIMOLOL OPH SOLN 10 ML BOTTLE RIGHT EYE PRN (21:08)
[2019-05-15] MEDS ORDERED: ATROPINE 1 % OPH SOLN 5 ML BOTTLE RIGHT EYE PRN (21:08)
[2019-05-15] MEDS ORDERED: NICOTINE 21 MG/24 HR PATCH TRANSDERM PRN (21:08)
[2019-05-16] MEDS ORDERED: CEFEPIME 1,000 MG in SODIUM CHLORIDE 0.9% 100 ML IV SCH (04:00)
[2019-05-16 05:24] LABS: Basophils # 0.1 10*3/uL (0.0-0.2); Basophils % 1.3 % (0.0-0.8); Eosinophils # 0.2 10*3/uL (0.0-0.87); Eosinophils % 1.8 % (0.00-10.9); Hematocrit 35.6 VOL% (35.7-47.0); Hemoglobin 10.9 GM/DL (12.0-16.0); Immature Granulocytes % 0.3 %; Immature Granulocytes Absolute 0.03 #; Lymphocytes # 0.9 10*3/uL (1.4-4.0); Lymphocytes % 9.8 % (21.3-54.2); Mean Corpuscular HGB Conc 30.6 GM/DL (32-36); Mean Corpuscular Volume 96.2 FL (87-102); Mean Platelet Volume 9.7 FL (9.6-12.0); Monocytes % 7.1 % (1.7-12.7); Neutrophils % 79.7 % (38.7-73.9); Platelet Count 384 T/CUMM (130-400); Red Cell Distribution Width 17.2 % (9.3-17.3); White Blood Count 9.2 T/CUMM (4-12)
[2019-05-16 05:51] LABS: Calcium 8.6 MG/DL (8.5-10.1); Osmolality,Calculated 289.8 MOS/KG (273-304)
[2019-05-16 07:40] VITALS: BP 142/74
[2019-05-16] MEDS: FOLIC ACID 1 MG TABLET PO SCH (08:56)
[2019-05-16] MEDS: DILTIAZEM CD 180 MG CAPSULE PO SCH (08:56)
[2019-05-16] MEDS: LOSARTAN 50 MG TABLET PO SCH (08:56)
[2019-05-16] MEDS: PANTOPRAZOLE 40 MG TABLET PO SCH (08:56)
[2019-05-16] MEDS: APIXABAN 2.5 MG TABLET PO SCH (08:57)
[2019-05-16] MEDS: carvediloL 12.5 MG TABLET PO SCH (08:57)
[2019-05-16] MEDS ORDERED: ESCITALOPRAM 10 MG TABLET PO SCH (09:00)
== END 2019-05-16 12:56 | disposition home or self-care (01) | DRG 291 ==
LOC: EDUNIT# → EDBD → N.ED 01:50 → SUATTDRO 04:55 → N.EDINP 05:12 → N.ICU 06:16 → N.5E 20:03
PROVIDERS: ADMIT Internal Medicine; ATTEND Internal Medicine

== ENCOUNTER 2019-07-13 11:08 | Inpatient (IN) ==
[2019-07-13] MEDS ORDERED: NITROGLYCERIN 2% OINT 1 INCH/GM PACK TOP STA (11:50)
[2019-07-13 12:33] LABS: Basophils # 0.1 10*3/uL (0.0-0.2); Basophils % 0.7 % (0.0-0.8); Eosinophils # 0.2 10*3/uL (0.0-0.87); Eosinophils % 1.7 % (0.00-10.9); Hematocrit 38.5 VOL% (35.7-47.0); Hemoglobin 11.6 GM/DL (12.0-16.0); Immature Granulocytes % 0.4 %; Immature Granulocytes Absolute 0.04 #; Lymphocytes # 0.9 10*3/uL (1.4-4.0); Lymphocytes % 8.3 % (21.3-54.2); Mean Corpuscular HGB Conc 30.1 GM/DL (32-36); Mean Corpuscular Volume 99.5 FL (87-102); Mean Platelet Volume 9.9 FL (9.6-12.0); Monocytes % 5.3 % (1.7-12.7); Neutrophils % 83.6 % (38.7-73.9); Platelet Count 224 T/CUMM (130-400); Red Blood Count 3.87 MC/CUMM (3.8-5.5); Red Cell Distribution Width 16.6 % (9.3-17.3); White Blood Count 11.1 T/CUMM (4-12)
[2019-07-13 12:36] LABS: INR 1.1; Partial Thromboplastin Time 29.7 SECS (20.8-36.0)
[2019-07-13 12:44] LABS: Bilirubin,Total 0.8 MG/DL (0.2-1.0); Calcium 8.4 MG/DL (8.5-10.1); Total Protein 7.9 G/DL (6.4-8.3)
[2019-07-13] MEDS ORDERED: hydrALAZINE 20 MG/1 ML VIAL IV PRN (13:23)
[2019-07-13] MEDS ORDERED: ATROPINE RIGHT EYE PRN (13:55)
[2019-07-13] MEDS ORDERED: DORZOLAMIDE TIMOLOL RIGHT EYE PRN (13:55)
[2019-07-13] MEDS ORDERED: ACETAMINOPHEN 325 MG TABLET PO PRN (13:56)
[2019-07-13] MEDS ORDERED: ONDANSETRON 4 MG/2 ML VIAL IV PRN (13:56)
[2019-07-13] MEDS ORDERED: LOSARTAN 50 MG TABLET PO SCH (14:00)
[2019-07-13] MEDS ORDERED: niCARdipine INJ 25 MG in SODIUM CHLORIDE 0.9% 240 ML IV PRN (14:06)
[2019-07-13] MEDS ORDERED: ALBUTEROL/IPRATROPIUM 3 ML NEB RESP TX PRN (14:27)
[2019-07-13] MEDS ORDERED: methylPREDNISolone SOD SUC 125 MG/2 ML VIAL IV ONE (14:44)
[2019-07-13 15:53] LABS: Risk Ratio 2.32; Thyroid Stimulating Hormone 2.74 uIU/ml (0.358-3.74); VLDL CHOLESTEROL 16.2 MG/DL
[2019-07-13] MEDS ORDERED: VANCOMYCIN INJ 400 MG in SODIUM CHLORIDE 0.9% 100 ML IV PRN (15:59)
[2019-07-13] MEDS ORDERED: niCARdipine 25 MG/10 ML VIAL IV ONE (17:10)
[2019-07-13] MEDS: CEFEPIME 1,000 MG in SODIUM CHLORIDE 0.9% 100 ML IV SCH (17:31)
[2019-07-13] MEDS: CIPROFLOXACIN INJ 400 MG in PREMIX 1 EACH IV SCH (17:59)
[2019-07-13] MEDS ORDERED: VANCOMYCIN INJ 750 MG in SODIUM CHLORIDE 0.9% 250 ML IV ONE ×2 (18:00→22:00)
[2019-07-13] MEDS ORDERED: SUCCINYLCHOLINE 200 MG/10 ML VIAL ONE (18:35)
[2019-07-13] MEDS ORDERED: SUCCINYLCHOLINE 200 MG/10 ML VIAL IV ONE (19:00)
[2019-07-13] MEDS ORDERED: propofoL 200 MG/20 ML VIAL IV ONE (19:00)
[2019-07-13] MEDS: ALBUTEROL/IPRATROPIUM 3 ML NEB RESP TX SCH (20:05)
[2019-07-13] MEDS: MIDAZOLAM 100 MG in SODIUM CHLORIDE 0.9% 80 ML IV PRN (20:11)
[2019-07-13] MEDS: APIXABAN 2.5 MG TABLET PO SCH (21:55)
[2019-07-13] MEDS: ATORVASTATIN 40 MG TABLET PO SCH (21:55)
[2019-07-13] MEDS: carvediloL 12.5 MG TABLET PO SCH (21:55)
[2019-07-13] MEDS: DONEPEZIL 5 MG TABLET PO SCH (21:55)
[2019-07-13] MEDS: FLUTICASONE 50 MCG NASAL SPRAY 16 GM BOTTLE BOTH NARES SCH (21:56)
[2019-07-14] MEDS: ALBUTEROL/IPRATROPIUM 3 ML NEB RESP TX SCH ×4 (01:47→19:26)
[2019-07-14 04:08] LABS: Basophils % 0.2 % (0.0-0.8); Immature Granulocytes % 0.4 %; Immature Granulocytes Absolute 0.05 #; Lymphocytes # 0.3 10*3/uL (1.4-4.0); Lymphocytes % 2.6 % (21.3-54.2); Mean Corpuscular HGB Conc 28.5 GM/DL (32-36); Mean Corpuscular Volume 100.9 FL (87-102); Mean Platelet Volume 9.7 FL (9.6-12.0); Monocytes % 0.8 % (1.7-12.7); Platelet Count 222 T/CUMM (130-400); Red Blood Count 3.44 MC/CUMM (3.8-5.5); Red Cell Distribution Width 16.2 % (9.3-17.3); White Blood Count 12.3 T/CUMM (4-12)
[2019-07-14 04:34] LABS: Albumin 2.5 G/DL (3.4-5.0); Bilirubin,Total 0.9 MG/DL (0.2-1.0); Calcium 7.9 MG/DL (8.5-10.1); Osmolality,Calculated 282.5 MOS/KG (273-304); Total Protein 7.6 G/DL (6.4-8.3)
[2019-07-14 04:43] LABS: Hematocrit 34.2 VOL% (35.7-47.0); Hemoglobin 10.1 GM/DL (12.0-16.0)
[2019-07-14 04:45] LABS: Segmented Neutrophils 100 % (50-85); Total Cells Counted 100
[2019-07-14 04:46] LABS: Anisocytosis 1+; Platelet Estimate Normal
[2019-07-14 05:33] LABS: ABG Base Excess -1.8 MMOL/L (-2.5-2.5); ABG HCO3 24.1 MMOL/L (20-26); ABG Oxygen Saturation 99.4 % (95-100); ABG PCO2 45.5 MM HG (35-48); ABG PH 7.341 (7.35-7.45); ABG PO2 447.5 MM HG (80-95); ABG TCO2 25.4 MMOL/L (23-27); Allen Test Positive; Pt O2 Delivery Device Ventilator
[2019-07-14] MEDS: APIXABAN 2.5 MG TABLET PO SCH ×2 (09:12→20:29)
[2019-07-14] MEDS: carvediloL 12.5 MG TABLET PO SCH ×2 (09:12→20:29)
[2019-07-14] MEDS: FOLIC ACID 1 MG TABLET PO SCH (09:12)
[2019-07-14] MEDS: PANTOPRAZOLE 40 MG VIAL IV SCH (09:13)
[2019-07-14] MEDS: LOSARTAN 50 MG TABLET PO SCH (09:13)
[2019-07-14] MEDS ORDERED: VANCOMYCIN INJ 400 MG in SODIUM CHLORIDE 0.9% 100 ML IV ONE (17:00)
[2019-07-14] MEDS: CEFEPIME 1,000 MG in SODIUM CHLORIDE 0.9% 100 ML IV SCH (17:29)
[2019-07-14] MEDS: CIPROFLOXACIN INJ 400 MG in PREMIX 1 EACH IV SCH (17:34)
[2019-07-14] MEDS: ATORVASTATIN 40 MG TABLET PO SCH (20:29)
[2019-07-14] MEDS: DONEPEZIL 5 MG TABLET PO SCH (20:29)
[2019-07-14] MEDS: FLUTICASONE 50 MCG NASAL SPRAY 16 GM BOTTLE BOTH NARES SCH (20:30)
[2019-07-15] MEDS: MIDAZOLAM 100 MG in SODIUM CHLORIDE 0.9% 80 ML IV PRN (00:43)
[2019-07-15] MEDS: ALBUTEROL/IPRATROPIUM 3 ML NEB RESP TX SCH ×4 (01:05→19:10)
[2019-07-15 03:28] LABS: Basophils % 0.4 % (0.0-0.8); Eosinophils % 0.4 % (0.00-10.9); Hematocrit 33.2 VOL% (35.7-47.0); Hemoglobin 10.1 GM/DL (12.0-16.0); Immature Granulocytes % 0.5 %; Immature Granulocytes Absolute 0.05 #; Lymphocytes # 0.9 10*3/uL (1.4-4.0); Lymphocytes % 8.3 % (21.3-54.2); Mean Corpuscular HGB Conc 30.4 GM/DL (32-36); Mean Corpuscular Volume 99.4 FL (87-102); Mean Platelet Volume 10.3 FL (9.6-12.0); Monocytes % 8.3 % (1.7-12.7); Neutrophils % 82.1 % (38.7-73.9); Platelet Count 238 T/CUMM (130-400); Red Blood Count 3.34 MC/CUMM (3.8-5.5); Red Cell Distribution Width 16.4 % (9.3-17.3); White Blood Count 10.4 T/CUMM (4-12)
[2019-07-15 03:36] LABS: ABG Base Excess 2.2 MMOL/L (-2.5-2.5); ABG HCO3 26.4 MMOL/L (20-26); ABG Oxygen Saturation 99.2 % (95-100); ABG PCO2 47.7 MM HG (35-48); ABG PH 7.376 (7.35-7.45); ABG TCO2 25.3 MMOL/L (23-27); Allen Test Positive; Pt O2 Delivery Device Ventilator
[2019-07-15 03:44] LABS: Albumin 2.6 G/DL (3.4-5.0); Bilirubin,Total 0.5 MG/DL (0.2-1.0); Calcium 7.8 MG/DL (8.5-10.1); Osmolality,Calculated 274.7 MOS/KG (273-304)
[2019-07-15] MEDS: LOSARTAN 50 MG TABLET PO SCH (09:25)
[2019-07-15] MEDS: carvediloL 12.5 MG TABLET PO SCH ×2 (09:25→22:00)
[2019-07-15] MEDS: APIXABAN 2.5 MG TABLET PO SCH ×2 (09:25→22:00)
[2019-07-15] MEDS: FOLIC ACID 1 MG TABLET PO SCH (09:25)
[2019-07-15] MEDS: PANTOPRAZOLE 40 MG VIAL IV SCH (09:33)
[2019-07-15 14:16] LABS: ABG Base Excess 0.6 MMOL/L (-2.5-2.5); ABG Oxygen Saturation 99.1 % (95-100); ABG PCO2 48.8 MM HG (35-48); ABG PH 7.349 (7.35-7.45); ABG TCO2 24.3 MMOL/L (23-27); Allen Test Positive; Pt O2 Delivery Device Ventilator
[2019-07-15] MEDS: CEFEPIME 1,000 MG in SODIUM CHLORIDE 0.9% 100 ML IV SCH (15:37)
[2019-07-15] MEDS: CIPROFLOXACIN INJ 400 MG in PREMIX 1 EACH IV SCH (17:09)
[2019-07-15] MEDS: DONEPEZIL 5 MG TABLET PO SCH (21:59)
[2019-07-15] MEDS: ATORVASTATIN 40 MG TABLET PO SCH (22:00)
[2019-07-15] MEDS: FLUTICASONE 50 MCG NASAL SPRAY 16 GM BOTTLE BOTH NARES SCH (22:00)
[2019-07-16] MEDS: ALBUTEROL/IPRATROPIUM 3 ML NEB RESP TX SCH ×2 (01:24→07:13)
[2019-07-16 03:58] LABS: Basophils # 0.1 10*3/uL (0.0-0.2); Basophils % 0.6 % (0.0-0.8); Eosinophils # 0.2 10*3/uL (0.0-0.87); Eosinophils % 2.2 % (0.00-10.9); Hematocrit 33.4 VOL% (35.7-47.0); Hemoglobin 10.2 GM/DL (12.0-16.0); Immature Granulocytes % 0.4 %; Immature Granulocytes Absolute 0.04 #; Lymphocytes # 0.9 10*3/uL (1.4-4.0); Mean Corpuscular HGB Conc 30.5 GM/DL (32-36); Mean Corpuscular Volume 99.4 FL (87-102); Mean Platelet Volume 10.1 FL (9.6-12.0); Monocytes % 7.2 % (1.7-12.7); Neutrophils % 81.6 % (38.7-73.9); Platelet Count 225 T/CUMM (130-400); Red Blood Count 3.36 MC/CUMM (3.8-5.5); Red Cell Distribution Width 16.5 % (9.3-17.3); White Blood Count 10.8 T/CUMM (4-12)
[2019-07-16 04:18] LABS: Albumin 2.5 G/DL (3.4-5.0); Bilirubin,Total 0.6 MG/DL (0.2-1.0); Calcium 7.1 MG/DL (8.5-10.1); Osmolality,Calculated 280.1 MOS/KG (273-304); Total Protein 7.4 G/DL (6.4-8.3)
[2019-07-16] MEDS ORDERED: ESCITALOPRAM 10 MG TABLET PO SCH (09:00)
[2019-07-16] MEDS: APIXABAN 2.5 MG TABLET PO SCH (09:01)
[2019-07-16] MEDS: carvediloL 12.5 MG TABLET PO SCH (09:01)
[2019-07-16] MEDS: FOLIC ACID 1 MG TABLET PO SCH (09:01)
[2019-07-16] MEDS: LOSARTAN 50 MG TABLET PO SCH (09:01)
[2019-07-16] MEDS: PANTOPRAZOLE 40 MG VIAL IV SCH (09:01)
[2019-07-16] MEDS ORDERED: DILTIAZEM CD 180 MG CAPSULE PO SCH (12:08)
[2019-07-16 12:13] VITALS: BP 188/91
== END 2019-07-16 13:46 | disposition home or self-care (01) | DRG 208 ==
LOC: EDUNIT# → EDBD → N.ED 11:08 → SUATTDRO 13:23 → N.EDINP 13:23 → N.TELEN 15:39 → N.ICU 17:03
PROVIDERS: ADMIT Family Medicine; ATTEND Family Medicine

== ENCOUNTER 2019-08-05 17:30 | Inpatient (IN) ==
[2019-08-05 18:15] LABS: ABG Base Excess -0.9 MMOL/L (-2.5-2.5); ABG HCO3 23.4 MMOL/L (20-26); ABG PCO2 59.7 MM HG (35-48); ABG PH 7.267 (7.35-7.45); ABG PO2 53.3 MM HG (80-95); Allen Test Positive
[2019-08-05 18:28] LABS: Basophils # 0.2 10*3/uL (0.0-0.2); Eosinophils # 0.3 10*3/uL (0.0-0.87); Eosinophils % 1.6 % (0.00-10.9); Hematocrit 35.6 VOL% (35.7-47.0); Hemoglobin 10.5 GM/DL (12.0-16.0); Immature Granulocytes % 0.5 %; Immature Granulocytes Absolute 0.08 #; Mean Corpuscular HGB Conc 29.5 GM/DL (32-36); Mean Corpuscular Volume 101.7 FL (87-102); Mean Platelet Volume 10.6 FL (9.6-12.0); Neutrophils % 78.9 % (38.7-73.9); Platelet Count 257 T/CUMM (130-400); Red Cell Distribution Width 16.1 % (9.3-17.3); White Blood Count 15.6 T/CUMM (4-12)
[2019-08-05 18:46] LABS: Ferritin 1747.2 ng/ml (8-252)
[2019-08-05 18:49] LABS: Albumin 2.9 G/DL (3.4-5.0); Bilirubin,Total 1.2 MG/DL (0.2-1.0); Calcium 8.8 MG/DL (8.5-10.1); Osmolality,Calculated 276.5 MOS/KG (273-304); Total Protein 8.6 G/DL (6.4-8.3)
[2019-08-05 19:21] LABS: PT Patient Result 11.3 SECS (9.6-12.2)
[2019-08-05] MEDS ORDERED: VANCOMYCIN INJ 1,000 MG in SODIUM CHLORIDE 0.9% 250 ML IV STA (19:29)
[2019-08-05] MEDS ORDERED: CEFEPIME 1,000 MG in SODIUM CHLORIDE 0.9% 100 ML IV STA (19:30)
[2019-08-05 20:00] LABS: ABG Base Excess 1.3 MMOL/L (-2.5-2.5); ABG HCO3 25.5 MMOL/L (20-26); ABG Oxygen Saturation 89.8 % (95-100); ABG PH 7.248 (7.35-7.45); ABG PO2 68.6 MM HG (80-95); ABG TCO2 28.1 MMOL/L (23-27); Allen Test Positive
[2019-08-05] MEDS ORDERED: OXYMETAZOLINE 0.05% NASAL SPRAY 15 ML BOTTLE ONE ×2 (20:01→21:05)
[2019-08-05 20:10] LABS: ABG PCO2 69.8 MM HG (35-48)
[2019-08-05] MEDS ORDERED: TRANEXAMIC ACID IV ONE (20:11)
[2019-08-05] MEDS ORDERED: GLUCAGON 1 MG VIAL IM PRN (20:22)
[2019-08-05] MEDS ORDERED: DEXTROSE 50% 25 GM/50 ML SYRINGE IV PRN (20:22)
[2019-08-05] MEDS ORDERED: ONDANSETRON 4 MG/2 ML VIAL IV PRN (20:22)
[2019-08-05] MEDS ORDERED: ETOMIDATE 20 MG/10 ML VIAL IV ONE ×3 (20:26→23:20)
[2019-08-05] MEDS ORDERED: ROCURONIUM 100 MG/10 ML VIAL IV ONE ×2 (20:29→23:20)
[2019-08-05] MEDS ORDERED: FUROSEMIDE 100 MG/10 ML VIAL IV ONE (20:29)
[2019-08-05] MEDS ORDERED: AZITHROMYCIN INJ 500 MG in SODIUM CHLORIDE 0.9% 250 ML IV SCH (20:30)
[2019-08-05] MEDS: PIPERACILLIN/TAZOBACTAM 3,375 MG in SODIUM CHLORIDE 0.9% 100 ML IV SCH (21:10)
[2019-08-05 21:35] LABS: ABG Base Excess 0.6 MMOL/L (-2.5-2.5); ABG Oxygen Saturation 99.4 % (95-100); ABG PCO2 49.8 MM HG (35-48); ABG PH 7.339 (7.35-7.45); ABG TCO2 24.9 MMOL/L (23-27); Allen Test Positive; Pt O2 Delivery Device Ventilator
[2019-08-05] MEDS ORDERED: AZITHROMYCIN 40 MG/ML 15 ML/BOTTLE PO SCH (23:30)
[2019-08-06 01:03] LABS: Hemoglobin 8.1 GM/DL (12.0-16.0)
[2019-08-06] MEDS ORDERED: NOREPINEPHRINE 4 MG/4 ML VIAL IV ONE (02:36)
[2019-08-06 04:17] LABS: Basophils # 0.1 10*3/uL (0.0-0.2); Basophils % 0.6 % (0.0-0.8); Eosinophils # 0.2 10*3/uL (0.0-0.87); Hematocrit 21.1 VOL% (35.7-47.0); Immature Granulocytes % 0.7 %; Lymphocytes # 1.5 10*3/uL (1.4-4.0); Lymphocytes % 10.2 % (21.3-54.2); Mean Corpuscular HGB Conc 28.4 GM/DL (32-36); Mean Platelet Volume 10.6 FL (9.6-12.0); Monocytes % 5.7 % (1.7-12.7); Neutrophils % 81.8 % (38.7-73.9); Platelet Count 203 T/CUMM (130-400); Red Blood Count 2.01 MC/CUMM (3.8-5.5); Red Cell Distribution Width 16.1 % (9.3-17.3); White Blood Count 14.5 T/CUMM (4-12)
[2019-08-06 04:28] LABS: Albumin 2.1 G/DL (3.4-5.0); Bilirubin,Total 1.1 MG/DL (0.2-1.0); Calcium 7.7 MG/DL (8.5-10.1); Total Protein 6.2 G/DL (6.4-8.3)
[2019-08-06] MEDS ORDERED: SODIUM CHLORIDE 0.9% 1,000 ML IV PRN (04:43)
[2019-08-06 04:58] LABS: ABG Base Excess 1.5 MMOL/L (-2.5-2.5); ABG HCO3 25.8 MMOL/L (20-26); ABG Oxygen Saturation 99.7 % (95-100); ABG PCO2 35.4 MM HG (35-48); ABG PH 7.461 (7.35-7.45)
[2019-08-06] MEDS ORDERED: AZITHROMYCIN 40 MG/ML 15 ML/BOTTLE PO ONE (09:00)
[2019-08-06] MEDS: PIPERACILLIN/TAZOBACTAM 3,375 MG in SODIUM CHLORIDE 0.9% 100 ML IV SCH ×2 (10:10→22:01)
[2019-08-06 13:55] LABS: Hematocrit 28.6 VOL% (35.7-47.0)
[2019-08-06] MEDS: hydrALAZINE 20 MG/1 ML VIAL IV PRN ×2 (14:26→21:01)
[2019-08-06] MEDS ORDERED: prednisoLONE ACETATE 1% OPH SUSP 5 ML BOTTLE RIGHT EYE PRN (17:29)
[2019-08-06] MEDS ORDERED: ATROPINE 1 % OPH SOLN 5 ML BOTTLE RIGHT EYE PRN (17:29)
[2019-08-06] MEDS: carvediloL 12.5 MG TABLET PO SCH (22:01)
[2019-08-06] MEDS: ATORVASTATIN 40 MG TABLET PO SCH (22:01)
[2019-08-07 05:24] LABS: Allen Test Positive; Pt O2 Delivery Device Ventilator
[2019-08-07 05:25] LABS: ABG Base Excess -4.1 MMOL/L (-2.5-2.5); ABG Oxygen Saturation 99.6 % (95-100); ABG PH 7.404 (7.35-7.45); ABG TCO2 18.7 MMOL/L (23-27)
[2019-08-07] MEDS: DILTIAZEM CD 180 MG CAPSULE PO SCH (08:45)
[2019-08-07] MEDS: AZITHROMYCIN 40 MG/ML 15 ML/BOTTLE PO SCH (08:45)
[2019-08-07] MEDS: FOLIC ACID 1 MG TABLET PO SCH (08:45)
[2019-08-07] MEDS: carvediloL 12.5 MG TABLET PO SCH ×2 (08:45→23:47)
[2019-08-07] MEDS: ESCITALOPRAM 10 MG TABLET PO SCH (08:45)
[2019-08-07] MEDS: PIPERACILLIN/TAZOBACTAM 3,375 MG in SODIUM CHLORIDE 0.9% 100 ML IV SCH ×2 (09:01→23:57)
[2019-08-07] MEDS: LOSARTAN 50 MG TABLET PO SCH (12:32)
[2019-08-07 12:33] LABS: Basophils # 0.1 10*3/uL (0.0-0.2); Basophils % 0.5 % (0.0-0.8); Eosinophils # 0.4 10*3/uL (0.0-0.87); Eosinophils % 2.1 % (0.00-10.9); Hematocrit 27.4 VOL% (35.7-47.0); Hemoglobin 8.4 GM/DL (12.0-16.0); Immature Granulocytes % 0.7 %; Immature Granulocytes Absolute 0.11 #; Lymphocytes # 0.9 10*3/uL (1.4-4.0); Lymphocytes % 5.2 % (21.3-54.2); Mean Corpuscular HGB Conc 30.7 GM/DL (32-36); Mean Corpuscular Volume 94.5 FL (87-102); Neutrophils % 84.5 % (38.7-73.9); Platelet Count 188 T/CUMM (130-400); Red Cell Distribution Width 19.9 % (9.3-17.3); White Blood Count 16.4 T/CUMM (4-12)
[2019-08-07 12:47] LABS: Calcium 8.2 MG/DL (8.5-10.1); Osmolality,Calculated 299.2 MOS/KG (273-304)
[2019-08-07] MEDS: PHENYLEPHRINE DRIP 40 MG/250 ML PREMIX IV PRN (13:55)
[2019-08-07] MEDS: ATORVASTATIN 40 MG TABLET PO SCH (20:12)
[2019-08-08] MEDS: PHENYLEPHRINE DRIP 40 MG/250 ML PREMIX IV PRN (00:06)
[2019-08-08 04:11] LABS: ABG HCO3 21.8 MMOL/L (20-26); ABG Oxygen Saturation 98.9 % (95-100); ABG PCO2 33.2 MM HG (35-48); ABG PH 7.436 (7.35-7.45); ABG PO2 205.6 MM HG (80-95); ABG TCO2 22.9 MMOL/L (23-27); Allen Test Positive; Pt O2 Delivery Device Ventilator
[2019-08-08 05:51] LABS: Basophils # 0.1 10*3/uL (0.0-0.2); Basophils % 0.5 % (0.0-0.8); Eosinophils # 0.5 10*3/uL (0.0-0.87); Hematocrit 27.9 VOL% (35.7-47.0); Hemoglobin 8.3 GM/DL (12.0-16.0); Immature Granulocytes % 0.6 %; Immature Granulocytes Absolute 0.09 #; Lymphocytes # 0.9 10*3/uL (1.4-4.0); Mean Corpuscular HGB Conc 29.7 GM/DL (32-36); Mean Corpuscular Volume 99.6 FL (87-102); Mean Platelet Volume 9.8 FL (9.6-12.0); Monocytes % 7.1 % (1.7-12.7); Neutrophils % 82.8 % (38.7-73.9); Platelet Count 234 T/CUMM (130-400); Red Cell Distribution Width 20.2 % (9.3-17.3); White Blood Count 14.9 T/CUMM (4-12)
[2019-08-08 05:55] LABS: Calcium 8.2 MG/DL (8.5-10.1); Osmolality,Calculated 276.2 MOS/KG (273-304)
[2019-08-08] MEDS: LOSARTAN 50 MG TABLET PO SCH (09:39)
[2019-08-08] MEDS: carvediloL 12.5 MG TABLET PO SCH ×2 (09:39→20:56)
[2019-08-08] MEDS: PIPERACILLIN/TAZOBACTAM 3,375 MG in SODIUM CHLORIDE 0.9% 100 ML IV SCH ×2 (09:41→22:46)
[2019-08-08] MEDS: ESCITALOPRAM 10 MG TABLET PO SCH (09:42)
[2019-08-08] MEDS: AZITHROMYCIN 40 MG/ML 15 ML/BOTTLE PO SCH (09:42)
[2019-08-08] MEDS: FOLIC ACID 1 MG TABLET PO SCH (09:43)
[2019-08-08] MEDS: DILTIAZEM CD 180 MG CAPSULE PO SCH (09:43)
[2019-08-08] MEDS: ATORVASTATIN 40 MG TABLET PO SCH (20:56)
[2019-08-09 06:09] LABS: Basophils # 0.1 10*3/uL (0.0-0.2); Basophils % 0.7 % (0.0-0.8); Eosinophils # 0.6 10*3/uL (0.0-0.87); Eosinophils % 5.2 % (0.00-10.9); Hematocrit 23.7 VOL% (35.7-47.0); Hemoglobin 7.3 GM/DL (12.0-16.0); Immature Granulocytes % 0.8 %; Immature Granulocytes Absolute 0.09 #; Lymphocytes # 0.9 10*3/uL (1.4-4.0); Lymphocytes % 7.8 % (21.3-54.2); Mean Corpuscular HGB Conc 30.8 GM/DL (32-36); Mean Corpuscular Volume 93.7 FL (87-102); Mean Platelet Volume 9.7 FL (9.6-12.0); Monocytes % 8.8 % (1.7-12.7); Neutrophils % 76.7 % (38.7-73.9); Platelet Count 203 T/CUMM (130-400); Red Blood Count 2.53 MC/CUMM (3.8-5.5); Red Cell Distribution Width 19.5 % (9.3-17.3); White Blood Count 11.9 T/CUMM (4-12)
[2019-08-09 06:29] LABS: Calcium 7.3 MG/DL (8.5-10.1)
[2019-08-09 07:25] LABS: Eosinophils 5 % (0-10); Hypochromasia 1+; Lymphocytes 10 % (20-55); Ovalocytes Slight; Platelet Estimate Adequate; Segmented Neutrophils 79 % (50-85); Total Cells Counted 100
[2019-08-09] MEDS: carvediloL 12.5 MG TABLET PO SCH ×2 (08:59→21:34)
[2019-08-09] MEDS: DILTIAZEM CD 180 MG CAPSULE PO SCH (08:59)
[2019-08-09] MEDS: AZITHROMYCIN 250 MG TABLET PO SCH (08:59)
[2019-08-09] MEDS: ESCITALOPRAM 10 MG TABLET PO SCH (08:59)
[2019-08-09] MEDS: FOLIC ACID 1 MG TABLET PO SCH (08:59)
[2019-08-09] MEDS: LOSARTAN 50 MG TABLET PO SCH (08:59)
[2019-08-09] MEDS: PIPERACILLIN/TAZOBACTAM 3,375 MG in SODIUM CHLORIDE 0.9% 100 ML IV SCH ×2 (09:45→21:33)
[2019-08-09] MEDS ORDERED: DORZOLAMIDE/TIMOLOL OPH SOLN 10 ML BOTTLE RIGHT EYE PRN (11:29)
[2019-08-09] MEDS: DONEPEZIL 5 MG TABLET PO SCH (21:34)
[2019-08-09] MEDS: ATORVASTATIN 40 MG TABLET PO SCH (21:34)
[2019-08-09] MEDS: FLUTICASONE 50 MCG NASAL SPRAY 16 GM BOTTLE BOTH NARES SCH (21:36)
[2019-08-10 05:36] LABS: Basophils # 0.1 10*3/uL (0.0-0.2); Basophils % 0.7 % (0.0-0.8); Eosinophils # 0.5 10*3/uL (0.0-0.87); Eosinophils % 5.3 % (0.00-10.9); Hematocrit 22.1 VOL% (35.7-47.0); Hemoglobin 6.6 GM/DL (12.0-16.0); Immature Granulocytes % 0.5 %; Immature Granulocytes Absolute 0.04 #; Lymphocytes # 1.1 10*3/uL (1.4-4.0); Lymphocytes % 12.4 % (21.3-54.2); Mean Corpuscular HGB Conc 29.9 GM/DL (32-36); Mean Corpuscular Volume 94.8 FL (87-102); Mean Platelet Volume 9.6 FL (9.6-12.0); Neutrophils % 72.1 % (38.7-73.9); Platelet Count 209 T/CUMM (130-400); Red Blood Count 2.33 MC/CUMM (3.8-5.5); Red Cell Distribution Width 19.4 % (9.3-17.3); White Blood Count 8.6 T/CUMM (4-12)
[2019-08-10 06:09] LABS: Calcium 7.7 MG/DL (8.5-10.1); Osmolality,Calculated 277.7 MOS/KG (273-304)
[2019-08-10] MEDS: carvediloL 12.5 MG TABLET PO SCH ×2 (08:30→20:52)
[2019-08-10] MEDS: AZITHROMYCIN 250 MG TABLET PO SCH (08:30)
[2019-08-10] MEDS: LOSARTAN 50 MG TABLET PO SCH (08:30)
[2019-08-10] MEDS: FOLIC ACID 1 MG TABLET PO SCH (08:30)
[2019-08-10] MEDS: ESCITALOPRAM 10 MG TABLET PO SCH (08:30)
[2019-08-10] MEDS: DILTIAZEM CD 180 MG CAPSULE PO SCH (08:31)
[2019-08-10] MEDS ORDERED: SODIUM CHLORIDE 0.9% 1,000 ML IV PRN (09:09)
[2019-08-10] MEDS: PIPERACILLIN/TAZOBACTAM 3,375 MG in SODIUM CHLORIDE 0.9% 100 ML IV SCH ×2 (10:22→22:51)
[2019-08-10] MEDS: ATORVASTATIN 40 MG TABLET PO SCH (20:52)
[2019-08-10] MEDS: FLUTICASONE 50 MCG NASAL SPRAY 16 GM BOTTLE BOTH NARES SCH (20:53)
[2019-08-10] MEDS: DONEPEZIL 5 MG TABLET PO SCH (20:53)
[2019-08-10 22:48] LABS: Hematocrit 32.2 VOL% (35.7-47.0)
[2019-08-10 22:50] LABS: Hemoglobin 9.7 GM/DL (12.0-16.0)
[2019-08-11] MEDS: hydrALAZINE 20 MG/1 ML VIAL IV PRN ×2 (00:56→08:16)
[2019-08-11 05:33] LABS: Basophils # 0.1 10*3/uL (0.0-0.2); Basophils % 0.9 % (0.0-0.8); Eosinophils # 0.4 10*3/uL (0.0-0.87); Eosinophils % 3.6 % (0.00-10.9); Hematocrit 34.1 VOL% (35.7-47.0); Hemoglobin 10.4 GM/DL (12.0-16.0); Immature Granulocytes % 1.5 %; Immature Granulocytes Absolute 0.15 #; Mean Corpuscular HGB Conc 30.5 GM/DL (32-36); Mean Corpuscular Volume 93.4 FL (87-102); Mean Platelet Volume 9.4 FL (9.6-12.0); Platelet Count 242 T/CUMM (130-400); Red Blood Count 3.65 MC/CUMM (3.8-5.5); Red Cell Distribution Width 18.8 % (9.3-17.3); White Blood Count 10.3 T/CUMM (4-12)
[2019-08-11 05:53] LABS: Calcium 8.2 MG/DL (8.5-10.1); Osmolality,Calculated 277.8 MOS/KG (273-304)
[2019-08-11] MEDS: ESCITALOPRAM 10 MG TABLET PO SCH (08:14)
[2019-08-11] MEDS: LOSARTAN 50 MG TABLET PO SCH (08:16)
[2019-08-11] MEDS: DILTIAZEM CD 180 MG CAPSULE PO SCH (08:16)
[2019-08-11] MEDS: carvediloL 12.5 MG TABLET PO SCH (08:16)
[2019-08-11] MEDS: FOLIC ACID 1 MG TABLET PO SCH (08:16)
[2019-08-11] MEDS ORDERED: INFLUENZA VIRUS VACCINE 0.5 ML SYRINGE IM ONE (09:00)
[2019-08-11] MEDS: PIPERACILLIN/TAZOBACTAM 3,375 MG in SODIUM CHLORIDE 0.9% 100 ML IV SCH (12:00)
[2019-08-11 13:20] VITALS: BP 148/56
== END 2019-08-11 14:27 | disposition home or self-care (01) | DRG 208 ==
LOC: N.ED 17:30 → SUATTDRO 20:22 → SUPCPDRO 20:22 → N.EDINP 20:22 → N.CC 21:53 → N.3E 08-09 11:10
PROVIDERS: ADMIT Internal Medicine; ATTEND Internal Medicine Geriatric Medicine